=== PATIENT | female | born 1965 | race Caucasian/White ===

== ENCOUNTER 2024-02-21 09:35 | Emergency (ER) | payer OTHER, SELFPAY ==
[2024-02-21] VITALS (10 sets, daily range): BP systolic 130–161; BP diastolic 65–81; PULSE 97–111; RESP 16–38; TEMP 36.6–36.7; O2SAT 97–99; BMI 25.8
--- NOTE | 2024-02-21 10:33 | EKG_ITS ---
[address] [address] Test Date: 2024-02-21 Pat Name: Brielle Reddy Department: [facility] Room: Gender: Female Community Recreation Coordinator: LINH : 1965 Requested By: Order Number: [id number] Reading MD: Gavin Mendoza Measurements Intervals [place] Rate: 111 P: 82 ID: [id number] QRS: 71 QRSD: 88 T: 68 QT: 356 QTc: 484 Interpretive Statements Sinus tachycardia Electronically Signed On 02-23-2024 15:50:46 PDT by Gavin Mendoza
[2024-02-21 10:34] LABS: Add Manual Diff / Slide Review NO; Basophils Absolute Auto 0 /uL (0-100); Basophils Percent Auto 0.2 % (0-2); Eosinophils Absolute Auto 100 /uL (0-450); Hematocrit 37.5 % (36-46); Hemoglobin 12.8 g/dL (12.0-16.0); Lymphocytes Absolute Auto 1200 /uL (1100-4500); Lymphocytes Percent Auto 19.6 % (25-40); Mean Corpuscular Hemoglobin 28.7 PG (26-34); Mean Corpuscular Volume 84.3 fL (80-100); Monocytes Absolute Auto 500 /uL (0-900); Monocytes Percent Auto 7.9 % (3-14); Neutrophils Absolute Auto 4500 /uL (1500-7000); Neutrophils Percent Auto 71.3 % (50-75); Platelet Count 219 X10^3/uL (150-400); Red Blood Cell Count 4.44 X10^6/uL (4.0-5.2); Red Cell Distribution Width 13.4 % (11.6-14.8); White Blood Cell Count 6.4 X10^3/uL (4.5-11.0)
[2024-02-21 10:57] LABS: Alanine Aminotransferase 61 IU/L (<35); Albumin 4.4 g/dL (3.5-5.0); Albumin Globulin Ratio 1.6 (1.0-2.8); Alkaline Phosphatase 130 U/L (38-126); Aspartate Aminotransferase 42 IU/L (14-36); BUN Creatinine Ratio 15.2 (6-22); Bilirubin Total 0.5 mg/dL (0.2-1.3); Blood Urea Nitrogen 12 mg/dL (7-17); Calcium 9.2 mg/dL (8.4-10.2); Carbon Dioxide 27 mmol/L (22-32); Chloride 103 mmol/L (98-107); Estimated Glomerular Filt Rate > 60 mL/min (>60); Globulin 2.8 g/dL (1.7-4.1); Glucose 96 mg/dL (70-100); HEMOLYSIS < 15 (0-50); Lipase 64 U/L (23-300); Potassium 4.3 mmol/L (3.4-5.1); Sodium 137 mmol/L (137-145); Total Protein 7.2 g/dL (6.3-8.2)
--- NOTE | 2024-02-21 11:19 | ED_ITS ---
HPI - Abdominal Pain General Chief Complaint: Abdominal Pain Stated Complaint: R Side Pain Time Seen by Provider: 02/21/24 11:18 Source: patient Mode of arrival: Ambulatory History of Present Illness HPI narrative: Patient is a 58-year-old female history of hypertension presenting today with right upper quadrant pain. She reports that it has been there for about 2 weeks. She had a little bit of nausea last week. It is in the right upper quadrant radiating around to her back. No groin pain. She has a history of an appendectomy. No vomiting or fever. She has been taking Tylenol and Motrin around the clock over the last couple of weeks it does take the edge off but she is still uncomfortable. No significant chest pain or fever. Related Data Home Medications Medication Instructions Recorded Confirmed amlodipine 10 mg tablet 10 mg PO DAILY 02/21/24 02/21/24 bupropion HCl 150 mg tablet,12 hr 150 mg PO BID 02/21/24 02/21/24 sustained-release Previous Rx's Medication Instructions Recorded hydrocodone 5 mg-acetaminophen 325 1 tab PO Q6H PRN pain #20 tabs 02/21/24 mg tablet ondansetron 4 mg disintegrating 4 mg PO Q8H PRN nausea and 02/21/24 tablet vomiting #10 tabs Allergies Allergy/AdvReac Type Severity Reaction Status Date / Time No Known Drug Allergies Allergy Verified 02/21/24 10:02 Patient History Social History Smoking Status: Current every day smoker Smoking Status: Current every day smoker alcohol intake frequency: a few times a week Substance Use Type: does not use Exam Initial Vital Signs Initial Vital Signs: Vital Signs Temperature 98 F 02/21/24 09:58 Pulse Rate 109 H 02/21/24 09:58 Respiratory Rate 18 02/21/24 09:58 Blood Pressure 130/81 02/21/24 09:58 Pulse Oximetry 99 02/21/24 09:58 Oxygen Delivery Method Room Air 02/21/24 09:58 GENERAL: Alert well-appearing 58-year-old and in no acute distress. HEENT: Head atraumatic,EOMI, pupils reactive, face symmetric, moist mucous membranes CARDIOVASCULAR: Regular rate and rhythm without murmurs, rubs or gallops. RESPIRATORY: Breath sounds equal bilaterally, no wheezes rales or rhonchi. ABDOMEN: Soft, positive Hurt's sign minimal epigastric pain : No CVA tenderness EXTREMITIES: Normal range of motion, no clubbing or edema. Neurovascularly intact NEUROLOGICAL: Alert and oriented x4.Normal gait and speech. SKIN: Warm, dry, no laceration, no petechiae, no rashes or lesions. Course Orders Ordered: ED Orders 02/21/24 10:03 EKG-12 Lead Stat 02/21/24 10:22 Complete Blood Count AUTO DIFF Stat Comprehensive Metabolic Panel Stat Lipase Stat 02/21/24 10:26 CEA [Carcinoembryonic Antigen] Stat Cancer (Carbohydrate) Ag 19-9 Stat Cancer Antigen 125 Stat 02/21/24 11:12 Urine Culture Stat Urine Microscopic Stat 02/21/24 11:25 US abdomen limited Stat 02/21/24 12:20 CT abdomen pelvis w con Stat Discontinued Medications Hydromorphone HCl (Hydromorphone 1 Mg Inj) 0.5 mg IV NOW ONE Stop: 02/21/24 14:19 Last Admin: 02/21/24 14:25 Dose: 0.5 mg Documented By: MARIZOL Ketorolac Tromethamine (Ketorolac 30 Mg/Ml Vial) 15 mg IV NOW ONE Stop: 02/21/24 11:26 Last Admin: 02/21/24 11:29 Dose: 15 mg Documented By: MARIZOL Ondansetron HCl (Ondansetron 4 Mg/2 Ml Inj) 4 mg IV NOW PRN PRN Reason: Nausea And Vomiting Ondansetron HCl (Ondansetron 4 Mg Odt) 4 mg PO NOW PRN PRN Reason: Nausea And Vomiting Vital Signs Vital signs: Vital Signs - 8 hr 02/21/24 09:58 02/21/24 10:33 02/21/24 11:00 Temperature 98 F Pulse Rate 109 H 111 H 98 H Respiratory Rate 18 21 Blood Pressure 130/81 Pulse Oximetry 99 97 97 Oxygen Delivery Method Room Air 02/21/24 11:00 02/21/24 11:15 02/21/24 11:15 Temperature Pulse Rate 110 H Respiratory Rate 24 Blood Pressure 134/65 161/69 H Pulse Oximetry 97 Oxygen Delivery Method 02/21/24 11:30 02/21/24 12:00 02/21/24 12:01 Temperature Pulse Rate 100 H 101 H Respiratory Rate 22 20 Blood Pressure 139/68 Pulse Oximetry 98 98 Oxygen Delivery Method 02/21/24 12:01 02/21/24 12:30 02/21/24 12:30 Temperature Pulse Rate 101 H 104 H Respiratory Rate 38 H 32 H Blood Pressure 140/66 Pulse Oximetry 98 97 Oxygen Delivery Method 02/21/24 13:00 02/21/24 14:49 Temperature 98.1 F Pulse Rate 97 H 101 H Respiratory Rate 20 16 Blood Pressure 144/79 H Pulse Oximetry 98 97 Oxygen Delivery Method Room Air MDM - Abdominal Pain Lab Data 02/21/24 10:22 02/21/24 10:22 Labs: Lab Results 02/21/24 02/21/24 02/21/24 Range/Units 10: 10:26 11:12 WBC 6.4 (4.5-11.0) X10^3/uL RBC 4.44 (4.0-5.2) X10^6/uL Hgb 12.8 (12.0-16.0) g/dL Hct 37.5 (36-46) % MCV 84.3 (80-100) fL MCH 28.7 (26-34) PG MCHC 34.0 (30-36) % RDW 13.4 (11.6-14.8) % Plt Count 219 (150-400) X10^3/uL Neut % (Auto) 71.3 (50-75) % Lymph % (Auto) 19.6 L (25-40) % [place] % (Auto) 7.9 (3-14) % Eos % (Auto) 1.0 L (2-4) % Baso % (Auto) 0.2 (0-2) % Neut # (Auto) 4500 (6908-4457) /uL Lymph # (Auto) 1200 (7551-8882) /uL [place] # (Auto) 500 (0-900) /uL Eos # (Auto) 100 (0-450) /uL Baso # (Auto) 0 (0-100) /uL Sodium 137 (137-145) mmol/L Potassium 4.3 (3.4-5.1) mmol/L Chloride 103 (98-107) mmol/L Carbon Dioxide 27 (22-32) mmol/L BUN 12 (7-17) mg/dL Creatinine 0.79 (0.52-1.04) mg/dL Estimated GFR > 60 (>60) mL/min BUN/Creatinine Ratio 15.2 (6-22) Glucose 96 (70-100) mg/dL Calcium 9.2 (8.4-10.2) mg/dL Total Bilirubin 0.5 (0.2-1.3) mg/dL AST 42 H (14-36) IU/L ALT 61 H (<35) IU/L Alkaline Phosphatase 130 H (38-126) U/L Total Protein 7.2 (6.3-8.2) g/dL Albumin 4.4 (3.5-5.0) g/dL Globulin 2.8 (1.7-4.1) g/dL Albumin/Globulin Ratio 1.6 (1.0-2.8) Lipase 64 (23-300) U/L Carcinoembryonic Ag 3.2 H (0.1-3.0) ng/mL CA 125 Antigen 12.0 (0-35) U/mL Urine RBC 0-1/hpf (0-5/HPF) Urine WBC 5-10/hpf H (0-5/HPF) Ur Squamous Epith Cells 1-5 /hpf (0-5/HPF) Urine Bacteria Moderate (10-30) H (None) Ur Culture Indicated? Specimen cultured Vol Urine Centrifuged 10ml (spun) Point of care testing: Urine Dip Bedside Urine Glucose Negative Bedside Urine Bilirubin - Negative Bedside Urine Ketone - Negative Urine Specific [place] 1.015 Bedside Urine Occult Blood - Negative Bedside Urine pH 7.5 Bedside Urine Protein - Negative Bedside Urine Urobilinogen - Negative Bedside Urine Nitrite - Negative Bedside Urine Leukocytes +++ 500 Esterase Imaging Data US - abdomen: Radiologist's Impression: PROCEDURE: US ABDOMEN LIMITED INDICATIONS: RUQ TECHNIQUE: Real-time scanning was performed of the abdominal and retroperitoneal organs, with image documentation. COMPARISON: None. FINDINGS: Liver: Homogeneous echotexture. No evidence of focal mass lesion. No intra hepatic biliary ductal dilatation Gallbladder: Sonolucent without cholelithiasis. No gallbladder wall thickening. No pericholecystic fluid or Hurt's sign. 4.5 cm echogenic mass adjacent to the gallbladder Common Bile Duct: 4.7 mm. Pancreas: 6.6 cm solid mass either within or adjacent to the pancreatic head. IMPRESSION: Solid mass lesion either within or adjacent to the pancreatic head will be further evaluated with contrast CT abdomen and pelvis Additional mass lesion adjacent to the gallbladder Approved by: Andres Flood M.D. on 02/21/2024 at 12:34 CT scan - abdomen/pelvis: Radiologist's Impression: PROCEDURE: CT ABDOMEN PELVIS W CON INDICATIONS: pancreatic mass on CT TECHNIQUE: After the administration of intravenous contrast, axial sections acquired from the lung bases to the pubic symphysis. Coronal and sagittal reformats were performed. For radiation dose reduction, the following was used: automated exposure control, adjustment of mA and/or kV according to patient size. COMPARISON: None. FINDINGS: Lower thorax: The lung bases are clear. Heart size normal. No hiatal hernia. Liver: Normal in size and attenuation. No contour deformity present. Biliary system: No calcified cholelithiasis or pericholecystic inflammation. No intra or extrahepatic bile duct dilatation. Pancreas: Irregular mass lesion centered on the head of the pancreas has several lobulations extending into the gallbladder fossa as well as superiorly adjacent to the liver. The mass measures overall 6.5 by 2.4 by 6.2 cm, and surrounds the main portal vein resulting in significant stenosis without occlusion or portal vein thrombosis. No evidence of direct liver involvement Spleen: The spleen is enlarged at 12.6 cm. No intrinsic mass lesion. Adrenals: Normal morphology and density. Reproductive system: Unremarkable as visualized. Urinary system: Normal renal size and attenuation. No renal calculi, hydronephrosis, or solid mass present. Urinary bladder unremarkable. Gastrointestinal system: The bowel is unremarkable without evidence of bowel obstruction or inflammation. The stomach appears unremarkable. Multiple diverticula arise from the sigmoid colon without evidence of diverticulitis. Appendix: Appendectomy Peritoneal spaces: Retroperitoneal para-aortic adenopathy measures up to 2.3 cm. Vasculature: Aortic atherosclerotic vascular calcification noted without evidence of aneurysm. Abdominal wall: Abdominal wall intact without evidence of ventral or inguinal hernias. Musculoskeletal: Normal bone mineralization. Degenerative disc disease and arthropathy noted in lower lumbar spine. No acute fractures. Perineural sacral cysts IMPRESSION: Large mass in the head of the pancreas consistent with adenocarcinoma. Retroperitoneal adenopathy. No evidence of hepatic metastasis. Approved by: Andres Flood M.D. on 02/21/2024 at 12:52 ECG Data Attestation: I personally reviewed and interpreted this ECG as follows: Prior ECG tracings: available for review Interpretation: Normal sinus rhythm rate 111 LA interval 166 QRS [address] changes no T- wave inversions no ischemia MDM Narrative Medical decision making narrative: Patient 58-year-old female without significant past medical history although she has a an appendectomy presenting today with a right upper quadrant pain. Has been ongoing for the last 2 weeks. Minimal nausea no vomiting no fevers. Blood work has been reviewed she does have elevated liver enzymes, AST 42 ALT 61 alk-phos 130 bilirubin 0.5, lipase 64 no priors to compare She has no leukocytosis normal electrolytes no TONIO Ultrasound concerning for pancreatic mass CT confirms a pancreatic mass Discussion of test results with patient she is given copy of her CT report. Discussion with DIRECTOR FUNDRAISING Marshall Mccain at [facility] [employer] which is patient's PCP updated on test results need for urgent follow-up with Oncology. Patient tolerating news well. She did request for stronger pain medicine more than Toradol so she was given Dilaudid which did seem to help. Given prescriptions for pain medication nausea medication at home. CEA 3.2 CA 19 9 pending CA 125 12 Discharge Plan Departure Patient Disposition: Home Clinical Impression: Mass of pancreas Activity Restrictions/Additional Instructions: *You have been diagnosed with pancreatic mass *What to do: You need further workup including biopsy blood markers and referral to Oncology. I have tried to call primary care office today if they return a phone call I will gladly talk to them I will try again tomorrow as well. *Continue to take medications as directed [place] 1 tablet every 6 hours if needed for opcl-[id number] pain Zofran 4 mg every 8 hours for nausea or vomiting *Follow up with your primary care provider in 2-3 days or call [phone] Follow-up with primary care, call on Friday. Be sure to give him your diagnosis and need for urgent referral to Oncology *Return to ER if you should have increasing pain nausea vomiting fever or any new, worsening or concerning symptoms Prescriptions: New hydrocodone-acetaminophen 5-325 mg tablet 1 tab PO Q6H PRN (Reason: pain) Qty: 20 0RF ondansetron 4 mg tablet,disintegrating 4 mg PO Q8H PRN (Reason: nausea and vomiting) Qty: 10 0RF No Action bupropion HCl 150 mg tablet sustained-release 12 hr 150 mg PO BID amlodipine 10 mg tablet 10 mg PO DAILY Referrals: Holly Rivera PA-C [Primary Care Provider] - Stand Alone Forms: Patient Portal/API
--- NOTE | 2024-02-21 11:25 | DI.US.S_ITS ---
PROCEDURE: US ABDOMEN LIMITED INDICATIONS: RUQ TECHNIQUE: Real-time scanning was performed of the abdominal and retroperitoneal organs, with image documentation. COMPARISON: None. FINDINGS: Liver: Homogeneous echotexture. No evidence of focal mass lesion. No intra hepatic biliary ductal dilatation Gallbladder: Sonolucent without cholelithiasis. No gallbladder wall thickening. No pericholecystic fluid or Hurt's sign. 4.5 cm echogenic mass adjacent to the gallbladder Common Bile Duct: 4.7 mm. Pancreas: 6.6 cm solid mass either within or adjacent to the pancreatic head. IMPRESSION: Solid mass lesion either within or adjacent to the pancreatic head will be further evaluated with contrast CT abdomen and pelvis Additional mass lesion adjacent to the gallbladder Approved by: Andres Flood M.D. on 02/21/2024 at 12:34
[2024-02-21] MEDS: KETOROLAC 30 MG/ML VIAL 15 MG IV (11:29)
[2024-02-21 11:59] LABS: Bacteria Urine Moderate (10-30); Culture Indicated Urine Specimen Cultured; RBC Urine 0-1/HPF (0-5/HPF); Squamous Epithelial Cell Urine 1-5 /HPF (0-5/HPF); Urine Volume 10mL (spun); WBC Urine 5-10/HPF (0-5/HPF)
--- NOTE | 2024-02-21 12:20 | DI.CT.S_ITS ---
PROCEDURE: CT ABDOMEN PELVIS W CON INDICATIONS: pancreatic mass on CT TECHNIQUE: After the administration of intravenous contrast, axial sections acquired from the lung bases to the pubic symphysis. Coronal and sagittal reformats were performed. For radiation dose reduction, the following was used: automated exposure control, adjustment of mA and/or kV according to patient size. COMPARISON: None. FINDINGS: Lower thorax: The lung bases are clear. Heart size normal. No hiatal hernia. Liver: Normal in size and attenuation. No contour deformity present. Biliary system: No calcified cholelithiasis or pericholecystic inflammation. No intra or extrahepatic bile duct dilatation. Pancreas: Irregular mass lesion centered on the head of the pancreas has several lobulations extending into the gallbladder fossa as well as superiorly adjacent to the liver. The mass measures overall 6.5 by 2.4 by 6.2 cm, and surrounds the main portal vein resulting in significant stenosis without occlusion or portal vein thrombosis. No evidence of direct liver involvement Spleen: The spleen is enlarged at 12.6 cm. No intrinsic mass lesion. Adrenals: Normal morphology and density. Reproductive system: Unremarkable as visualized. Urinary system: Normal renal size and attenuation. No renal calculi, hydronephrosis, or solid mass present. Urinary bladder unremarkable. Gastrointestinal system: The bowel is unremarkable without evidence of bowel obstruction or inflammation. The stomach appears unremarkable. Multiple diverticula arise from the sigmoid colon without evidence of diverticulitis. Appendix: Appendectomy Peritoneal spaces: Retroperitoneal para-aortic adenopathy measures up to 2.3 cm. Vasculature: Aortic atherosclerotic vascular calcification noted without evidence of aneurysm. Abdominal wall: Abdominal wall intact without evidence of ventral or inguinal hernias. Musculoskeletal: Normal bone mineralization. Degenerative disc disease and arthropathy noted in lower lumbar spine. No acute fractures. Perineural sacral cysts IMPRESSION: Large mass in the head of the pancreas consistent with adenocarcinoma. Retroperitoneal adenopathy. No evidence of hepatic metastasis. Approved by: Andres Flood M.D. on 02/21/2024 at 12:52
[2024-02-21] MEDS: HYDROMORPHONE 1 MG INJ 0.5 MG IV (14:25)
[2024-02-21 15:06] LABS: Carcinoembryonic Antigen 3.2 ng/mL (0.1-3.0)
[2024-02-23 22:39] LABS: Cancer (Carbohydrate) Ag 19-9 12 U/mL (0-35)
== END 2024-02-21 14:50 | disposition home or self-care (01) ==
PROVIDERS: Emergency Provider Emergency Medicine; PCP Physician Assistant
DX: K86.89 Other specified diseases of pancreas (principal); R11.0 Nausea; R00.0 Tachycardia, unspecified
CPT/HCPCS: 74177; 76705; 80053; 81003; 81015; 82378; 83690; 85025; 86301; 86304; 87086; 93005; 96374; 96375; 99283; 99284; J1171; J1885; Q9967

== ENCOUNTER 2024-03-24 18:31 | Emergency (ER) | payer OTHER, SELFPAY ==
[2024-03-24 18:37] VITALS: BP 141/67; PULSE 122; RESP 18; TEMP 36.6; O2SAT 97; BMI 27.3
--- NOTE | 2024-03-24 18:41 | EKG_ITS ---
[address] [address] Test Date: 2024-03-24 Pat Name: Brielle Reddy Department: [facility] Room: Gender: Female Manager Application: inés : 1965 Requested By: Order Number: [id number] Reading MD: Gavin eMndoza Measurements Intervals [place] Rate: 110 P: 78 IA: 150 QRS: 76 QRSD: 88 T: 67 QT: 362 QTc: 489 Interpretive Statements Sinus tachycardia Right atrial enlargement Electronically Signed On 03-25-2024 7:59:22 PST by Gavin Mendoza
[2024-03-24 19:04] LABS: Add Manual Diff / Slide Review NO; Basophils Absolute Auto 0 /uL (0-100); Basophils Percent Auto 0.4 % (0-2); Eosinophils Absolute Auto 100 /uL (0-450); Eosinophils Percent Auto 1.4 % (2-4); Hematocrit 36.5 % (36-46); Hemoglobin 12.1 g/dL (12.0-16.0); Lymphocytes Absolute Auto 1400 /uL (1100-4500); Lymphocytes Percent Auto 14.5 % (25-40); Mean Corpuscular HGB Conc 33.1 % (30-36); Mean Corpuscular Hemoglobin 27.8 PG (26-34); Mean Corpuscular Volume 83.9 fL (80-100); Monocytes Absolute Auto 900 /uL (0-900); Monocytes Percent Auto 9.1 % (3-14); Neutrophils Absolute Auto 7200 /uL (1500-7000); Neutrophils Percent Auto 74.6 % (50-75); Platelet Count 337 X10^3/uL (150-400); Red Blood Cell Count 4.35 X10^6/uL (4.0-5.2); Red Cell Distribution Width 15.1 % (11.6-14.8); White Blood Cell Count 9.6 X10^3/uL (4.5-11.0)
[2024-03-24 19:06] LABS: Alanine Aminotransferase 81 IU/L (<35); Albumin 3.5 g/dL (3.5-5.0); Albumin Globulin Ratio 1.1 (1.0-2.8); Alkaline Phosphatase 384 U/L (38-126); Aspartate Aminotransferase 62 IU/L (14-36); BUN Creatinine Ratio 12.1 (6-22); Bilirubin Total 3.4 mg/dL (0.2-1.3); Blood Urea Nitrogen 8 mg/dL (7-17); Calcium 8.9 mg/dL (8.4-10.2); Carbon Dioxide 31 mmol/L (22-32); Chloride 99 mmol/L (98-107); Estimated Glomerular Filt Rate > 60 mL/min (>60); Globulin 3.3 g/dL (1.7-4.1); Glucose 104 mg/dL (70-100); HEMOLYSIS < 15 (0-50); Lipase 110 U/L (23-300); Potassium 3.4 mmol/L (3.4-5.1); Sodium 133 mmol/L (137-145); Total Protein 6.8 g/dL (6.3-8.2)
[2024-03-24 20:24] LABS: Bacteria Urine Moderate (10-30); Culture Indicated Urine Specimen Cultured; RBC Urine 0-1/HPF (0-5/HPF); Squamous Epithelial Cell Urine 5-10 /HPF (0-5/HPF); Urine Volume 10mL (spun); WBC Urine 1-5/HPF (0-5/HPF)
--- NOTE | 2024-03-24 21:52 | ED.ABDPAIN ---
HPI - Abdominal Pain General Chief Complaint: Abdominal Pain Stated Complaint: abd px Time Seen by Provider: 03/24/24 21:51 Source: patient Mode of arrival: Ambulatory History of Present Illness HPI narrative: Patient is a 58-year-old female who has a newly diagnosed B-cell lymphoma mass in her abdomen with recent biliary stent followed by [facility] presenting today with ongoing abdominal pain. She has preliminary biopsy results back but has not yet started chemotherapy. She was having increasing bilirubin and liver enzymes numbers and she had a biliary stent placed less than 1 week ago. She reports ongoing abdominal pain for 3 weeks. She is able to eat and drink but she certainly is not eating very much. The pain is extremely uncomfortable for her. She reports that pain medication isn't really helping. No nausea or vomiting. She is having bowel movements she did take some sort of Gas-X and had diarrhea. No fever or chills. Related Data Home Medications Medication Instructions Recorded Confirmed amlodipine 10 mg tablet 10 mg PO DAILY 02/21/24 02/21/24 bupropion HCl 150 mg tablet,12 hr 150 mg PO BID 02/21/24 02/21/24 sustained-release Previous Rx's Medication Instructions Recorded hydrocodone 5 mg-acetaminophen 325 1 tab PO Q6H PRN pain #20 tabs 02/21/24 mg tablet ondansetron 4 mg disintegrating 4 mg PO Q8H PRN nausea and 02/21/24 tablet vomiting #10 tabs ciprofloxacin HCl 500 mg tablet 500 mg PO BID #14 tabs 03/24/24 (Cipro) metronidazole 500 mg tablet 500 mg PO Q8H 7 days #21 tabs 03/24/24 ondansetron 4 mg disintegrating 4 mg PO Q8H PRN nausea and 03/24/24 tablet vomiting #20 tabs oxycodone 5 mg tablet 5 mg PO Q6H PRN pain #20 tabs 03/24/24 Allergies Allergy/AdvReac Type Severity Reaction Status Date / Time No Known Drug Allergies Allergy Verified 03/24/24 18:41 Patient History Social History Smoking Status: Current every day smoker Smoking Status: Current every day smoker tobacco type: cigarettes alcohol intake frequency: holidays/special occasions only Substance Use Type: does not use Exam Initial Vital Signs Initial Vital Signs: Vital Signs Temperature 97.9 F 11/20/24 18:37 Pulse Rate 122 H 03/24/24 18:37 Respiratory Rate 18 03/24/24 18:37 Blood Pressure 141/67 H 03/24/24 18:37 Pulse Oximetry 97 03/24/24 18:37 Oxygen Delivery Method Room Air 03/24/24 18:37 GENERAL: Alert 58-year-old female slightly jaundice 58-year-old HEENT: Head atraumatic,EOMI, pupils reactive, face symmetric, moist mucous membranes CARDIOVASCULAR: Regular rate and rhythm without murmurs, rubs or gallops. RESPIRATORY: Breath sounds equal bilaterally, no wheezes rales or rhonchi. ABDOMEN: Soft, mildly tender periumbilical region no significant distention tender across lower abdomen as well : No CVA tenderness EXTREMITIES: Normal range of motion, no clubbing or edema. Neurovascularly intact NEUROLOGICAL: Alert and oriented x4.Normal gait and speech. Cranial nerves II through XII grossly intact. SKIN: Warm, dry, no laceration, no petechiae, no rashes or lesions. Course Orders Ordered: ED Orders 03/24/24 21:57 CT abdomen pelvis w con Stat Discontinued Medications Ciprofloxacin (Ciprofloxacin 250 Mg Tablet) 500 mg PO NOW ONE Stop: 03/24/24 23:21 Last Admin: 03/24/24 23:31 Dose: 500 mg Documented By: MARINO Hydromorphone HCl (Hydromorphone 1 Mg Inj) 1 mg IV NOW ONE Stop: 03/24/24 21:58 Last Admin: 03/24/24 22:10 Dose: 1 mg Documented By: MARINO Metronidazole (Metronidazole 500 Mg Tablet) 500 mg PO NOW ONE Stop: 03/24/24 23:21 Last Admin: 03/24/24 23:31 Dose: 500 mg Documented By: MARINO Ondansetron HCl (Ondansetron 4 Mg/2 Ml Inj) 4 mg IV NOW PRN PRN Reason: Nausea And Vomiting Ondansetron HCl (Ondansetron 4 Mg Odt) 4 mg PO NOW PRN PRN Reason: Nausea And Vomiting Vital Signs Vital signs: Vital Signs - 8 hr 03/24/24 23:34 Temperature 98.4 F Respiratory Rate 18 Blood Pressure 142/72 H Pulse Oximetry 96 Oxygen Delivery Method Room Air MDM - Abdominal Pain Lab Data 03/24/24 18:45 03/24/24 18:45 Labs: Lab Results 03/24/24 03/24/24 Range/Units 18:45 18:50 WBC 9.6 (4.5-11.0) X10^3/uL RBC 4.35 (4.0-5.2) X10^6/uL Hgb 12.1 (12.0-16.0) g/dL Hct 36.5 (36-46) % MCV 83.9 (80-100) fL MCH 27.8 (26-34) PG MCHC 33.1 (30-36) % RDW 15.1 H (11.6-14.8) % Plt Count 337 (150-400) X10^3/uL Neut % (Auto) 74.6 (50-75) % Lymph % (Auto) 14.5 L (25-40) % [place] % (Auto) 9.1 (3-14) % Eos % (Auto) 1.4 L (2-4) % Baso % (Auto) 0.4 (0-2) % Neut # (Auto) 7200 H (5928-4716) /uL Lymph # (Auto) 1400 (6441-4783) /uL [place] # (Auto) 900 (0-900) /uL Eos # (Auto) 100 (0-450) /uL Baso # (Auto) 0 (0-100) /uL Sodium 133 L (137-145) mmol/L Potassium 3.4 (3.4-5.1) mmol/L Chloride 99 (98-107) mmol/L Carbon Dioxide 31 (22-32) mmol/L BUN 8 (7-17) mg/dL Creatinine 0.66 (0.52-1.04) mg/dL Estimated GFR > 60 (>60) mL/min BUN/Creatinine Ratio 12.1 (6-22) Glucose 104 H (70-100) mg/dL Calcium 8.9 (8.4-10.2) mg/dL Total Bilirubin 3.4 H (0.2-1.3) mg/dL AST 62 H (14-36) IU/L ALT 81 H (<35) IU/L Alkaline Phosphatase 384 H (38-126) U/L Total Protein 6.8 (6.3-8.2) g/dL Albumin 3.5 (3.5-5.0) g/dL Globulin 3.3 (1.7-4.1) g/dL Albumin/Globulin Ratio 1.1 (1.0-2.8) Lipase 110 (23-300) U/L Urine RBC 0-1/hpf (0-5/HPF) Urine WBC 1-5/hpf (0-5/HPF) Ur Squamous Epith Cells 5-10 /hpf H (0-5/HPF) Urine Bacteria Moderate (10-30) H (None) Ur Culture Indicated? Specimen cultured Vol Urine Centrifuged 10ml (spun) Point of care testing: Urine Dip Bedside Urine Glucose Negative Bedside Urine Bilirubin - Negative Bedside Urine Ketone - Negative Urine Specific [place] 1.015 Bedside Urine Protein - Negative Bedside Urine Urobilinogen - Negative Bedside Urine Nitrite - Negative Bedside Urine Leukocytes + [address] scan - abdomen/pelvis: Radiologist's Impression: PROCEDURE: CT ABDOMEN PELVIS W CON INDICATIONS: pancreatic mass biliary stent TECHNIQUE: After the administration of intravenous contrast, axial sections acquired from the lung bases to the pubic symphysis. Coronal and sagittal reformats were performed. For radiation dose reduction, the following was used: automated exposure control, adjustment of mA and/or kV according to patient size. COMPARISON: [facility], CT, CT ABDOMEN PELVIS W CON, 02/21/2024, 12:40. FINDINGS: Image quality: Diagnostic. Lower Chest: No significant findings. ABDOMEN: Liver: Mild steatosis. No discrete mass. Gallbladder: Distended. No wall thickening or stone. Biliary ducts: Left hepatic lobe pneumobilia. No significant biliary dilatation. Common bile duct stent is present. Pancreas: Large lobulated mass arising from the pancreatic head extending cranial into the nikolas hepatis and superior to the pericaval region measures about 7.8 x 6.5 cm, previous about 6. 4 x 6.0 cm. The mass surrounds and attenuates the main portal vein, hepatic artery, and probably now the retrohepatic inferior vena cava. Spleen: Size is within normal limits. Adrenal Glands: No adrenal nodules. Kidneys and Ureters: Symmetric enhancement. No nephrolithiasis or hydronephrosis. No hydroureter. Stomach and Bowel: Decompressed stomach and small bowel. Increased quantity of solid stool in the colon. The appendix is absent. Decompression of the sigmoid colon with circumferential wall thickening, mild surrounding pericolonic inflammation, mild colonic hyperemia, and adjacent fascial thickening. Findings are new since the prior exam. Peritoneum: No free fluid or free air. Ventral Wall: No significant ventral hernia. Abdominal Nodes: Bulky aortocaval adenopathy below the level of the renal vein. Vessels: Mass nearly attenuates the proximal left renal vein. The splenic vein is patent. Abdominal aorta is normal caliber. Moderate abdominal aortic atherosclerotic calcification. PELVIS: Pelvic Organs: Uterus and ovaries are normal. Bladder: No bladder wall thickening, accounting for underdistention. Pelvic Nodes: No enlarged lymph nodes. Miscellaneous: No inguinal hernias are seen. Bones: No aggressive osseous abnormality. IMPRESSION: Increased size pancreatic surrounding portal vein, hepatic artery, and now effecting the proximal left renal vein and retro hepatics IVC. Findings suggest acute left lower quadrant colitis and/or diverticulitis. Mild pneumobilia, increased compared to the prior exam is expected post common duct stent placement. Dictated by: Aisa Robbins M.D. on 03/24/2024 at 22:41 ECG Data Attestation: I personally reviewed and interpreted this ECG as follows: Prior ECG tracings: available for review Interpretation: Normal sinus rhythm rate 110 VA interval 150 QRS 88 QTC 489 no ischemia similar to prior MDM Narrative Medical decision making narrative: MDM CC: Abdominal pain Complicating co-morbidities: Abdominal mass Medical records reviewed: Previous ED visits Differential considered: Bowel obstruction worsening metastasis Exam documented above, pertinent findings include: Abdomen is tender she is tender across her lower abdomen and pearly umbilical region. Mild jaundice noted on exam Lab Test results independently reviewed as above. Pertinent findings: WBC 9.6, hemoglobin 12.1 hematocrit 36.5 Sodium 133, potassium 3.4, chloride 99, carbon dioxide 30, BUN 8, creatinine 0.6 Bilirubin 3.4, AST 62 ALT a new 1 alk-phos 384 Independently reviewed EKG as above no ischemia sinus rhythm Imaging studies independently reviewed: Worsening lobulated mass Also acute diverticulitis Consultations: None Treatments: Dilaudid Cipro Flagyl Zofran Re-evaluations: Patient is doing much better after Dilaudid Discussion: Patient 58-year-old female has a known pancreatic mass she reports that it is B-cell lymphoma based on preliminary biopsy results. Waiting to start chemotherapy at [facility] for definitive pathology. She has been having some bloating and lower abdominal pain and discomfort. CT does show acute diverticulitis. She has no leukocytosis. Urinalysis does show bacteria but she is some squamous cell not terribly concerning for UTI. We will go ahead and start her on Cipro and Flagyl for diverticulitis to see if that helps. We will give her some pain medications and nausea medication. Recommend outpatient follow up. Patient was given disc copy of her CT and imaging was pushed into [facility] Discharge Plan Departure Patient Disposition: Home Clinical Impression: Diverticulitis, Mass of pancreas Instructions: DI for Diverticulitis Activity Restrictions/Additional Instructions: *You have been diagnosed with diverticulitis *What to do: At this time you do have mild case of diverticulitis which might be missing your pain in your abdomen worse. I do think reasonable to start you on a course antibiotics to see if it helps. *Continue to take medications as directed Cipro 500 mg twice a day for 7 days Flagyl 500 mg 3 times a day for 7 days Zofran 4 mg every 8 hours if needed for nausea or vomiting Oxycodone 5 mg every 6 hours if needed for severe pain *Follow up with your primary care provider in 2-3 days or call [phone] *Return to ER if you should have increasing abdominal pain vomiting fever [or] any new, worsening or concerning symptoms CONTROLLED SUBSTANCE DISCHARGE (Narcotoic/benzodiazepine/Flexeril/Phenergan) 1. You have been prescribed narcotic medications, it does have acetaminophen/Tylenol/paracetamol in it, DO NOT TAKE MORE THAN 4,00mg in 24 hours of Tylenol. TRAMADOL DOES NOT CONTAIN TYLENOL 2. Please understand that we cannot provide further refills of narcotics, benzodiazepines or controlled substances through the ED and her pain management will need to be through your provider. 3. While on these medications you cannot drive or operate heavy machinery. 4. You cannot sign legal documents or perform any duties such as this. 5. As long as you're taking opiate pain medications he should also be taking a stool softener such as Colace, Dulcolax, MiraLAX or prune juice, to help avoid constipation. Prescriptions: New metronidazole 500 mg tablet 500 mg PO Q8H 7 Days Qty: 21 0RF ciprofloxacin HCl [Cipro] 500 mg tablet 500 mg PO BID Qty: 14 0RF ondansetron 4 mg tablet,disintegrating 4 mg PO Q8H PRN (Reason: nausea and vomiting) Qty: 20 0RF oxycodone 5 mg tablet 5 mg PO Q6H PRN (Reason: pain) Qty: 20 0RF No Action bupropion HCl 150 mg tablet sustained-release 12 hr 150 mg PO BID amlodipine 10 mg tablet 10 mg PO DAILY hydrocodone-acetaminophen 5-325 mg tablet 1 tab PO Q6H PRN (Reason: pain) Qty: 20 0RF ondansetron 4 mg tablet,disintegrating 4 mg PO Q8H PRN (Reason: nausea and vomiting) Qty: 10 0RF Referrals: Holly Rivera PA-C [Primary Care Provider] - Stand Alone Forms: Patient Portal/API/Survey
--- NOTE | 2024-03-24 21:57 | DI.CT.S_ITS ---
PROCEDURE: CT ABDOMEN PELVIS W CON INDICATIONS: pancreatic mass biliary stent TECHNIQUE: After the administration of intravenous contrast, axial sections acquired from the lung bases to the pubic symphysis. Coronal and sagittal reformats were performed. For radiation dose reduction, the following was used: automated exposure control, adjustment of mA and/or kV according to patient size. COMPARISON: [facility], CT, CT ABDOMEN PELVIS W CON, 02/21/2024, 12:40. FINDINGS: Image quality: Diagnostic. Lower Chest: No significant findings. ABDOMEN: Liver: Mild steatosis. No discrete mass. Gallbladder: Distended. No wall thickening or stone. Biliary ducts: Left hepatic lobe pneumobilia. No significant biliary dilatation. Common bile duct stent is present. Pancreas: Large lobulated mass arising from the pancreatic head extending cranial into the nikolas hepatis and superior to the pericaval region measures about 7.8 x 6.5 cm, previous about 6. 4 x 6.0 cm. The mass surrounds and attenuates the main portal vein, hepatic artery, and probably now the retrohepatic inferior vena cava. Spleen: Size is within normal limits. Adrenal Glands: No adrenal nodules. Kidneys and Ureters: Symmetric enhancement. No nephrolithiasis or hydronephrosis. No hydroureter. Stomach and Bowel: Decompressed stomach and small bowel. Increased quantity of solid stool in the colon. The appendix is absent. Decompression of the sigmoid colon with circumferential wall thickening, mild surrounding pericolonic inflammation, mild colonic hyperemia, and adjacent fascial thickening. Findings are new since the prior exam. Peritoneum: No free fluid or free air. Ventral Wall: No significant ventral hernia. Abdominal Nodes: Bulky aortocaval adenopathy below the level of the renal vein. Vessels: Mass nearly attenuates the proximal left renal vein. The splenic vein is patent. Abdominal aorta is normal caliber. Moderate abdominal aortic atherosclerotic calcification. PELVIS: Pelvic Organs: Uterus and ovaries are normal. Bladder: No bladder wall thickening, accounting for underdistention. Pelvic Nodes: No enlarged lymph nodes. Miscellaneous: No inguinal hernias are seen. Bones: No aggressive osseous abnormality. IMPRESSION: Increased size pancreatic surrounding portal vein, hepatic artery, and now effecting the proximal left renal vein and retro hepatics IVC. Findings suggest acute left lower quadrant colitis and/or diverticulitis. Mild pneumobilia, increased compared to the prior exam is expected post common duct stent placement. Dictated by: Aisa Robbins M.D. on 03/24/2024 at 22:41 Approved by: Asia Robbins M.D. on 03/24/2024 at 22:52
[2024-03-24] MEDS: HYDROMORPHONE 1 MG INJ IV (22:10)
[2024-03-24] MEDS: CIPROFLOXACIN 250 MG TABLET 500 MG PO (23:31)
[2024-03-24] MEDS: metroNIDAZOLE 500 MG TABLET PO (23:31)
[2024-03-24 23:34] VITALS: BP 142/72; RESP 18; TEMP 36.9; O2SAT 96
== END 2024-03-24 23:37 | disposition home or self-care (01) ==
PROVIDERS: Emergency Provider Emergency Medicine; PCP Physician Assistant
DX: K57.92 Diverticulitis of intestine, part unspecified, without perforation or abscess without bleeding (principal); K86.89 Other specified diseases of pancreas; R00.0 Tachycardia, unspecified
CPT/HCPCS: 36415; 74177; 80053; 81003; 81015; 83690; 85025; 87086; 93005; 96374; 99284; J1171; Q9967

== ENCOUNTER → 2024-05-01 10:48 | Outpatient (CLI) | payer OTHER, SELFPAY ==
[2024-05-01 11:40] LABS: Appearance Urine UA CLEAR; Bilirubin Urine UA NEGATIVE (NEGATIVE); Color Urine UA YELLOW; Glucose Urine UA NEGATIVE (Negative); Ketones Urine UA NEGATIVE (NEGATIVE); Leukocyte Esterase Urine UA 1+ (NEGATIVE); Nitrite Urine UA NEGATIVE (Negative); Occult Blood Urine UA NEGATIVE (Negative); Protein Urine UA TRACE (Negative)
[2024-05-01 11:46] LABS: Bacteria Urine Moderate (10-30); RBC Urine None Seen (0-5/HPF); Squamous Epithelial Cell Urine 0-1 /HPF (0-5/HPF); Transitional Epi Cells Urine 1-5/HPF (0-5/HPF); Urine Volume 10mL (spun); WBC Urine 10-30/HPF (0-5/HPF)
[2024-05-01 11:47] LABS: Amorphous Sediment Urine 2+; Culture Indicated Urine Specimen Cultured
[2024-05-01 12:00] LABS: TSH w/ Reflex to FT4 0.04 uIU/mL (0.47-4.68)
[2024-05-01 12:29] LABS: Free T4, Direct Thyroxine 2.31 ng/dL (0.78-2.19)
[2024-05-03 15:34] LABS: HIV 1 & 2 Ab/Ag 4th Gen Combo NEGATIVE (NEGATIVE); Hep C Virus Ab w/Reflex Quant NEGATIVE s/c (NEGATIVE)
== END ==
PROVIDERS: PCP Physician Assistant; Referring Provider Internal Medicine Hematology & Oncology; Visit Provider Internal Medicine Hematology & Oncology
DX: C83.30 Diffuse large B-cell lymphoma, unspecified site (principal)
CPT/HCPCS: 36415; 81001; 84439; 84443; 86803; 87086; 87389

== ENCOUNTER 2024-05-11 17:47 | Emergency (ER) | payer OTHER, SELFPAY ==
[2024-05-11] VITALS (13 sets, daily range): BP systolic 121–151; BP diastolic 58–71; PULSE 102–119; RESP 16–35; TEMP 37.3–37.9; O2SAT 92–97; BMI 23.9
--- NOTE | 2024-05-11 18:02 | DI.RAD.S_ITS ---
PROCEDURE: XR CHEST 1V INDICATIONS: suspected sepsis TECHNIQUE: One view of the chest was acquired. COMPARISON: None. FINDINGS: Surgical changes and devices: Right chest wall port catheter with distal tip projecting over the lower SVC. Lungs and pleura: Lungs are clear. No pleural effusions or pneumothorax. Mediastinum: Mediastinal contours appear normal. Heart size is normal. Bones and chest wall: No suspicious bony lesions. Overlying soft tissues appear unremarkable. IMPRESSION: No acute cardiopulmonary abnormality is seen. Approved by: Georgette Ibrahim M.D.,Ph.D. on 05/11/2024 at 19:30
--- NOTE | 2024-05-11 18:13 | ED_ITS ---
HPI - Fever <Roxane Bagley MD - Last Filed: 05/13/24 07:36> General Chief Complaint: Fever Stated Complaint: reaction on infusion, dx lymphoma Time Seen by Provider: 05/11/24 18:03 Mode of arrival: Ambulatory History of Present Illness HPI Narrative: 59yoF abdi [facility] non-hodgkins lymphoma on rituximab and tafasitamab followed by Dr. Kuhn at [facility] presents by private vehicle for fever, nausea, abdominal pain x 4 days. Patient received her first dose of rituxumab on 05/07, and her first infusion of tafasitamab on 05/10. Patient reports T-max 101.3? at home. She called her oncologist, who referred her to the ER for evaluation. 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 Related Data Home Medications Medication Instructions Recorded Confirmed albuterol 90 mcg/actuation aerosol 90 mcg inhalation Q4HR PRN 05/13/24 05/13/24 inhaler Shortness Of Breath Or Wheezing atorvastatin 40 mg tablet 40 mg PO DAILY 05/13/24 05/13/24 baclofen 10 mg tablet 10 mg PO BID 05/13/24 05/13/24 bupropion HCl 300 mg 24 hr tablet, 300 mg PO QAM 05/13/24 05/13/24 extended release fluticasone 250 mcg-salmeterol 50 1 inh inhalation BID 05/13/24 05/13/24 mcg/dose blistr powdr for inhalation gabapentin See Rx Instructions .Route .COMPLEX 05/13/24 05/13/24 lisinopril 20 1 tab PO DAILY 05/13/24 05/13/24 mg-hydrochlorothiazide 12.5 mg tablet metoprolol tartrate 25 mg tablet 25 mg PO BID 05/13/24 05/13/24 montelukast 10 mg tablet 10 mg PO DAILY 05/13/24 05/13/24 tamsulosin 0.4 mg capsule 0.4 mg PO DAILY 05/13/24 05/13/24 warfarin See Rx Instructions .Route .COMPLEX 05/13/24 05/13/24 Allergies Allergy/AdvReac Type Severity Reaction Status Date / Time No Known Drug Allergies Allergy Verified 05/11/24 17:56 Review of Systems <Juan M Riggs MD - Last Filed: 05/14/24 09:26> Review of Systems Narrative: GENERAL: Positive chills, fatigue, malaise, fever, sweats. HEENT: Negative sinus pain, ear pain, sore throat RESPIRATORY: Negative dyspnea, cough CARDIOVASCULAR: Negative chest pain, palpitations GASTROINTESTINAL: Positive nausea, vomiting, abdominal pain : Negative dysuria, frequency, hematuria MUSCULOSKELETAL: Negative muscle or bony pain SKIN: Negative rash, skin lesions NEUROLOGIC: Negative weakness, numbness ROS Unobtainable: All systems reviewed & are unremarkable except as noted in HPI and below Patient History <Roxane Bagley MD - Last Filed: 05/13/24 07:36> Social History Smoking Status: Current every day smoker Smoking Status: Current every day smoker tobacco type: cigarettes alcohol intake frequency: holidays/special occasions only Exam <Roxane Bagley MD - Last Filed: 05/13/24 07:36> Initial Vital Signs Initial Vital Signs: Vital Signs Temperature 100.2 F H 05/11/24 17:56 Pulse Rate 119 H 05/11/24 17:56 Respiratory Rate 16 05/11/24 17:56 Blood Pressure 143/67 H 05/11/24 17:56 Pulse Oximetry 95 05/11/24 17:56 Oxygen Delivery Method Room Air 05/11/24 17:56 Const: Awake, alert, no acute distress, nontoxic appearing Cardiac: Tachycardia, regular rhythm RESP: unlabored, clear bilaterally, no wheezing GI: Soft, generalized tenderness to deep palpation, particularly right upper quadrant, no rebound or guarding Skin: Warm, Dry, intact, no rashes Neuro: AO x3, CN II-XII grossly intact, moves all extremities <Juan M Riggs MD - Last Filed: 05/14/24 09:26> Initial Vital Signs Initial Vital Signs: Vital Signs Temperature 100.2 F H 05/11/24 17:56 Pulse Rate 119 H 05/11/24 17:56 Respiratory Rate 16 05/11/24 17:56 Blood Pressure 143/67 H 05/11/24 17:56 Pulse Oximetry 95 05/11/24 17:56 Oxygen Delivery Method Room Air 05/11/24 17:56 <Roxane Whitney DO - Last Filed: 05/14/24 07:26> Initial Vital Signs Initial Vital Signs: Vital Signs Temperature 100.2 F H 05/11/24 17:56 Pulse Rate 119 H 05/11/24 17:56 Respiratory Rate 16 05/11/24 17:56 Blood Pressure 143/67 H 05/11/24 17:56 Pulse Oximetry 95 05/11/24 17:56 Oxygen Delivery Method Room Air 05/11/24 17:56 <Mike Loomis DO - Last Filed: 05/13/24 21:54> Initial Vital Signs Initial Vital Signs: Vital Signs Temperature 100.2 F H 05/11/24 17:56 Pulse Rate 119 H 05/11/24 17:56 Respiratory Rate 16 05/11/24 17:56 Blood Pressure 143/67 H 05/11/24 17:56 Pulse Oximetry 95 05/11/24 17:56 Oxygen Delivery Method Room Air 05/11/24 17:56 Course <Roxane Bagley MD - Last Filed: 05/13/24 07:36> Orders Ordered: Discontinued Medications Heparin Sodium (Porcine) (Heparin 500 Unit/5 Ml Port Flush) 500 unit IV PRN PRN PRN Reason: Flush Last Admin: 05/13/24 22:45 Dose: 500 unit Documented By: MARINO Hydromorphone HCl (Hydromorphone 0.5 Mg Inj) 0.5 mg IV NOW ONE Stop: 05/11/24 19:36 Last Admin: 05/11/24 19:46 Dose: 0.5 mg Documented By: KHADAR Hydromorphone HCl (Hydromorphone 1 Mg Inj) 1 mg IV NOW ONE Stop: 05/11/24 21:04 Last Admin: 05/11/24 21:25 Dose: 1 mg Documented By: ROBYN Hydromorphone HCl (Hydromorphone 1 Mg Inj) 1 mg IV NOW ONE Stop: 05/12/24 02:46 Last Admin: 05/12/24 02:58 Dose: 1 mg Documented By: KHADAR Hydromorphone HCl (Hydromorphone 1 Mg Inj) 1 mg IV NOW ONE Stop: 05/12/24 07:48 Last Admin: 05/12/24 08:06 Dose: 1 mg Documented By: TU Hydromorphone HCl (Hydromorphone 1 Mg Inj) 1 mg IV NOW ONE Stop: 05/12/24 15:44 Last Admin: 05/12/24 15:48 Dose: 1 mg Documented By: TU Hydromorphone HCl (Hydromorphone 1 Mg Inj) 1 mg IV NOW ONE Stop: 05/12/24 17:59 Last Admin: 05/12/24 18:05 Dose: 1 mg Documented By: TU Hydromorphone HCl (Hydromorphone 1 Mg Inj) 1 mg IV Q4H [facility] Last Admin: 05/13/24 22:33 Dose: 1 mg Documented By: Admin: 05/13/24 17:31 Dose: 1 mg Documented By: Admin: 05/13/24 14:36 Dose: 1 mg Documented By: Admin: 05/13/24 10:28 Dose: 1 mg Documented By: Admin: 05/13/24 06:42 Dose: 1 mg Documented By: Admin: 05/13/24 03:00 Dose: 1 mg Documented By: Admin: 05/12/24 22:18 Dose: 1 mg Documented By: VALERIE Sodium Chloride (Normal Saline 0.9%) 1,000 mls @ 1,000 mls/hr IV BOLUS ONE Stop: 05/11/24 19:01 Last Infusion: 05/11/24 20:52 Dose: Infused Documented By: [email or web address]) Admin: 05/11/24 18:39 Dose: 1,000 mls/hr Documented By: JOSE Cefepime HCl 2 gm/ Sodium (Chloride) 100 mls @ 200 mls/hr IV NOW ONE Stop: 05/11/24 18:05 Last Infusion: 05/11/24 19:10 Dose: Infused Documented By: Admin: 05/11/24 18:39 Dose: 200 mls/hr Documented By: JOSE Sodium Chloride (Normal Saline 0.9%) 1,000 mls @ 1,000 mls/hr IV BOLUS ONE Stop: 05/11/24 19:23 Last Infusion: 05/11/24 20:53 Dose: Infused Documented By: [email or web address]) Admin: 05/11/24 19:46 Dose: 1,000 mls/hr Documented By: KHADAR Piperacillin Sod/Tazobactam (Sod 4.5 gm/ Sodium Chloride) 100 mls @ 200 mls/hr IV Q8H [facility] Last Infusion: 05/12/24 03:35 Dose: Infused Documented By: Admin: 05/12/24 02:54 Dose: 200 mls/hr Documented By: KHADAR Piperacillin Sod/Tazobactam (Sod 3.375 gm/ Sodium Chloride) 100 mls @ 25 mls/hr IV Q8H MONA Last Infusion: 05/13/24 21:48 Dose: Infused Documented By: Admin: 05/13/24 18:15 Dose: 25 mls/hr Documented By: Infusion: 05/13/24 14:36 Dose: Infused Documented By: Admin: 05/13/24 10:31 Dose: 25 mls/hr Documented By: Infusion: 05/13/24 06:41 Dose: Infused Documented By: Admin: 05/13/24 02:52 Dose: 25 mls/hr Documented By: Infusion: 05/12/24 22:05 Dose: Infused Documented By: Admin: 05/12/24 18:06 Dose: 25 mls/hr Documented By: Infusion: 05/12/24 14:48 Dose: Infused Documented By: Admin: 05/12/24 10:37 Dose: 25 mls/hr Documented By: RB Sodium Chloride (Normal Saline 0.9%) 1,000 mls @ 150 mls/hr IV CONT MONA Sodium Chloride (Normal Saline 0.9%) 1,000 mls @ 150 mls/hr IV CONT MONA Last Infusion: 05/13/24 22:48 Dose: Infused Documented By: Admin: 05/13/24 21:40 Dose: 150 mls/hr Documented By: Infusion: 05/13/24 21:40 Dose: Infused Documented By: Admin: 05/13/24 15:01 Dose: 150 mls/hr Documented By: Infusion: 05/13/24 15:01 Dose: Infused Documented By: Admin: 05/13/24 08:46 Dose: 150 mls/hr Documented By: TU Morphine Sulfate (Morphine 4 Mg/Ml Inj) 4 mg IV NOW ONE Stop: 05/11/24 18:25 Last Admin: 05/11/24 18:39 Dose: 4 mg Documented By: JOSE Ondansetron HCl (Ondansetron 4 Mg/2 Ml Inj) 4 mg IV NOW PRN PRN Reason: Nausea And Vomiting Last Admin: 05/12/24 02:49 Dose: 4 mg Documented By: KHADAR Ondansetron HCl (Ondansetron 4 Mg Odt) 4 mg SL NOW PRN PRN Reason: Nausea And Vomiting Last Admin: 05/12/24 15:54 Dose: 4 mg Documented By: RB Ondansetron HCl (Ondansetron 4 Mg/2 Ml Inj) 4 mg IV NOW ONE Stop: 05/11/24 18:25 Last Admin: 05/11/24 18:47 Dose: Not Given Documented By: JOSE Vital Signs Vital signs: Vital Signs - 8 hr 05/13/24 14:00 05/13/24 14:00 05/13/24 14:30 Pulse Rate 97 H 98 H Respiratory Rate 19 27 H Blood Pressure 123/58 L Pulse Oximetry 97 96 05/13/24 15:00 05/13/24 15:30 05/13/24 16:00 Pulse Rate 96 H 94 H Respiratory Rate 26 H 20 Blood Pressure 130/60 Pulse Oximetry 96 95 05/13/24 16:00 05/13/24 16:30 05/13/24 17:00 Pulse Rate 95 H 96 H 100 H Respiratory Rate 28 H 35 H 30 H Blood Pressure Pulse Oximetry 96 96 96 05/13/24 17:30 05/13/24 17:35 05/13/24 17:35 Pulse Rate 100 H 100 H Respiratory Rate 31 H Blood Pressure 125/63 Pulse Oximetry 96 96 05/13/24 18:00 05/13/24 18:00 05/13/24 18:20 Pulse Rate 99 H Respiratory Rate 20 Blood Pressure 133/65 131/58 L Pulse Oximetry 95 05/13/24 18:20 05/13/24 18:30 Pulse Rate 101 H 96 H Respiratory Rate 23 Blood Pressure Pulse Oximetry 95 96 <Juan M Riggs MD - Last Filed: 05/14/24 09:26> Orders Ordered: Discontinued Medications Heparin Sodium (Porcine) (Heparin 500 Unit/5 Ml Port Flush) 500 unit IV PRN PRN PRN Reason: Flush Last Admin: 05/13/24 22:45 Dose: 500 unit Documented By: MARINO Hydromorphone HCl (Hydromorphone 0.5 Mg Inj) 0.5 mg IV NOW ONE Stop: 05/11/24 19:36 Last Admin: 05/11/24 19:46 Dose: 0.5 mg Documented By: KHADAR Hydromorphone HCl (Hydromorphone 1 Mg Inj) 1 mg IV NOW ONE Stop: 05/11/24 21:04 Last Admin: 05/11/24 21:25 Dose: 1 mg Documented By: ROBYN Hydromorphone HCl (Hydromorphone 1 Mg Inj) 1 mg IV NOW ONE Stop: 05/12/24 02:46 Last Admin: 05/12/24 02:58 Dose: 1 mg Documented By: KHADAR Hydromorphone HCl (Hydromorphone 1 Mg Inj) 1 mg IV NOW ONE Stop: 05/12/24 07:48 Last Admin: 05/12/24 08:06 Dose: 1 mg Documented By: TU Hydromorphone HCl (Hydromorphone 1 Mg Inj) 1 mg IV NOW ONE Stop: 05/12/24 15:44 Last Admin: 05/12/24 15:48 Dose: 1 mg Documented By: TU Hydromorphone HCl (Hydromorphone 1 Mg Inj) 1 mg IV NOW ONE Stop: 05/12/24 17:59 Last Admin: 05/12/24 18:05 Dose: 1 mg Documented By: TU Hydromorphone HCl (Hydromorphone 1 Mg Inj) 1 mg IV Q4H [facility] Last Admin: 05/13/24 22:33 Dose: 1 mg Documented By: Admin: 05/13/24 17:31 Dose: 1 mg Documented By: Admin: 05/13/24 14:36 Dose: 1 mg Documented By: Admin: 05/13/24 10:28 Dose: 1 mg Documented By: Admin: 05/13/24 06:42 Dose: 1 mg Documented By: Admin: 05/13/24 03:00 Dose: 1 mg Documented By: Admin: 05/12/24 22:18 Dose: 1 mg Documented By: VALERIE Sodium Chloride (Normal Saline 0.9%) 1,000 mls @ 1,000 mls/hr IV BOLUS ONE Stop: 05/11/24 19:01 Last Infusion: 05/11/24 20:52 Dose: Infused Documented By: ROBYN(2) Admin: 05/11/24 18:39 Dose: 1,000 mls/hr Documented By: JOSE Cefepime HCl 2 gm/ Sodium (Chloride) 100 mls @ 200 mls/hr IV NOW ONE Stop: 05/11/24 18:05 Last Infusion: 05/11/24 19:10 Dose: Infused Documented By: Admin: 05/11/24 18:39 Dose: 200 mls/hr Documented By: JOSE Sodium Chloride (Normal Saline 0.9%) 1,000 mls @ 1,000 mls/hr IV BOLUS ONE Stop: 05/11/24 19:23 Last Infusion: 05/11/24 20:53 Dose: Infused Documented By: ROBYN(2) Admin: 05/11/24 19:46 Dose: 1,000 mls/hr Documented By: KHADAR Piperacillin Sod/Tazobactam (Sod 4.5 gm/ Sodium Chloride) 100 mls @ 200 mls/hr IV Q8H MONA Last Infusion: 05/12/24 03:35 Dose: Infused Documented By: Admin: 05/12/24 02:54 Dose: 200 mls/hr Documented By: KHADAR Piperacillin Sod/Tazobactam (Sod 3.375 gm/ Sodium Chloride) 100 mls @ 25 mls/hr IV Q8H MONA Last Infusion: 05/13/24 21:48 Dose: Infused Documented By: Admin: 05/13/24 18:15 Dose: 25 mls/hr Documented By: Infusion: 05/13/24 14:36 Dose: Infused Documented By: Admin: 05/13/24 10:31 Dose: 25 mls/hr Documented By: Infusion: 05/13/24 06:41 Dose: Infused Documented By: Admin: 05/13/24 02:52 Dose: 25 mls/hr Documented By: Infusion: 05/12/24 22:05 Dose: Infused Documented By: Admin: 05/12/24 18:06 Dose: 25 mls/hr Documented By: Infusion: 05/12/24 14:48 Dose: Infused Documented By: Admin: 05/12/24 10:37 Dose: 25 mls/hr Documented By: RB Sodium Chloride (Normal Saline 0.9%) 1,000 mls @ 150 mls/hr IV CONT OMNA Sodium Chloride (Normal Saline 0.9%) 1,000 mls @ 150 mls/hr IV CONT MONA Last Infusion: 05/13/24 22:48 Dose: Infused Documented By: Admin: 05/13/24 21:40 Dose: 150 mls/hr Documented By: Infusion: 05/13/24 21:40 Dose: Infused Documented By: Admin: 05/13/24 15:01 Dose: 150 mls/hr Documented By: Infusion: 05/13/24 15:01 Dose: Infused Documented By: Admin: 05/13/24 08:46 Dose: 150 mls/hr Documented By: TU Morphine Sulfate (Morphine 4 Mg/Ml Inj) 4 mg IV NOW ONE Stop: 05/11/24 18:25 Last Admin: 05/11/24 18:39 Dose: 4 mg Documented By: JOSE Ondansetron HCl (Ondansetron 4 Mg/2 Ml Inj) 4 mg IV NOW PRN PRN Reason: Nausea And Vomiting Last Admin: 05/12/24 02:49 Dose: 4 mg Documented By: KHADAR Ondansetron HCl (Ondansetron 4 Mg Odt) 4 mg SL NOW PRN PRN Reason: Nausea And Vomiting Last Admin: 05/12/24 15:54 Dose: 4 mg Documented By: TU Ondansetron HCl (Ondansetron 4 Mg/2 Ml Inj) 4 mg IV NOW ONE Stop: 05/11/24 18:25 Last Admin: 05/11/24 18:47 Dose: Not Given Documented By: JOSE Vital Signs Vital signs: Vital Signs - 8 hr 05/13/24 14:00 05/13/24 14:00 05/13/24 14:30 Pulse Rate 97 H 98 H Respiratory Rate 19 27 H Blood Pressure 123/58 L Pulse Oximetry 97 96 05/13/24 15:00 05/13/24 15:30 05/13/24 16:00 Pulse Rate 96 H 94 H Respiratory Rate 26 H 20 Blood Pressure 130/60 Pulse Oximetry 96 95 05/13/24 16:00 05/13/24 16:30 05/13/24 17:00 Pulse Rate 95 H 96 H 100 H Respiratory Rate 28 H 35 H 30 H Blood Pressure Pulse Oximetry 96 96 96 05/13/24 17:30 05/13/24 17:35 05/13/24 17:35 Pulse Rate 100 H 100 H Respiratory Rate 31 H Blood Pressure 125/63 Pulse Oximetry 96 96 05/13/24 18:00 05/13/24 18:00 05/13/24 18:20 Pulse Rate 99 H Respiratory Rate 20 Blood Pressure 133/65 131/58 L Pulse Oximetry 95 05/13/24 18:20 05/13/24 18:30 Pulse Rate 101 H 96 H Respiratory Rate 23 Blood Pressure Pulse Oximetry 95 96 <Roxane Whitney, DO - Last Filed: 05/14/24 07:26> Orders Ordered: Discontinued Medications Heparin Sodium (Porcine) (Heparin 500 Unit/5 Ml Port Flush) 500 unit IV PRN PRN PRN Reason: Flush Last Admin: 05/13/24 22:45 Dose: 500 unit Documented By: MARINO Hydromorphone HCl (Hydromorphone 0.5 Mg Inj) 0.5 mg IV NOW ONE Stop: 05/11/24 19:36 Last Admin: 05/11/24 19:46 Dose: 0.5 mg Documented By: KHADAR Hydromorphone HCl (Hydromorphone 1 Mg Inj) 1 mg IV NOW ONE Stop: 05/11/24 21:04 Last Admin: 05/11/24 21:25 Dose: 1 mg Documented By: ROBYN Hydromorphone HCl (Hydromorphone 1 Mg Inj) 1 mg IV NOW ONE Stop: 05/12/24 02:46 Last Admin: 05/12/24 02:58 Dose: 1 mg Documented By: KHADAR Hydromorphone HCl (Hydromorphone 1 Mg Inj) 1 mg IV NOW ONE Stop: 05/12/24 07:48 Last Admin: 05/12/24 08:06 Dose: 1 mg Documented By: TU Hydromorphone HCl (Hydromorphone 1 Mg Inj) 1 mg IV NOW ONE Stop: 05/12/24 15:44 Last Admin: 05/12/24 15:48 Dose: 1 mg Documented By: TU Hydromorphone HCl (Hydromorphone 1 Mg Inj) 1 mg IV NOW ONE Stop: 05/12/24 17:59 Last Admin: 05/12/24 18:05 Dose: 1 mg Documented By: TU Hydromorphone HCl (Hydromorphone 1 Mg Inj) 1 mg IV Q4H [facility] Last Admin: 05/13/24 22:33 Dose: 1 mg Documented By: Admin: 05/13/24 17:31 Dose: 1 mg Documented By: Admin: 05/13/24 14:36 Dose: 1 mg Documented By: Admin: 05/13/24 10:28 Dose: 1 mg Documented By: Admin: 05/13/24 06:42 Dose: 1 mg Documented By: Admin: 05/13/24 03:00 Dose: 1 mg Documented By: Admin: 05/12/24 22:18 Dose: 1 mg Documented By: VALERIE Sodium Chloride (Normal Saline 0.9%) 1,000 mls @ 1,000 mls/hr IV BOLUS ONE Stop: 05/11/24 19:01 Last Infusion: 05/11/24 20:52 Dose: Infused Documented By: [email or web address]) Admin: 05/11/24 18:39 Dose: 1,000 mls/hr Documented By: JOSE Cefepime HCl 2 gm/ Sodium (Chloride) 100 mls @ 200 mls/hr IV NOW ONE Stop: 05/11/24 18:05 Last Infusion: 05/11/24 19:10 Dose: Infused Documented By: Admin: 05/11/24 18:39 Dose: 200 mls/hr Documented By: JOSE Sodium Chloride (Normal Saline 0.9%) 1,000 mls @ 1,000 mls/hr IV BOLUS ONE Stop: 05/11/24 19:23 Last Infusion: 05/11/24 20:53 Dose: Infused Documented By: [email or web address]) Admin: 05/11/24 19:46 Dose: 1,000 mls/hr Documented By: KHADAR Piperacillin Sod/Tazobactam (Sod 4.5 gm/ Sodium Chloride) 100 mls @ 200 mls/hr IV Q8H [facility] Last Infusion: 05/12/24 03:35 Dose: Infused Documented By: Admin: 05/12/24 02:54 Dose: 200 mls/hr Documented By: KHADAR Piperacillin Sod/Tazobactam (Sod 3.375 gm/ Sodium Chloride) 100 mls @ 25 mls/hr IV Q8H [facility] Last Infusion: 05/13/24 21:48 Dose: Infused Documented By: Admin: 05/13/24 18:15 Dose: 25 mls/hr Documented By: Infusion: 05/13/24 14:36 Dose: Infused Documented By: Admin: 05/13/24 10:31 Dose: 25 mls/hr Documented By: Infusion: 05/13/24 06:41 Dose: Infused Documented By: Admin: 05/13/24 02:52 Dose: 25 mls/hr Documented By: Infusion: 05/12/24 22:05 Dose: Infused Documented By: Admin: 05/12/24 18:06 Dose: 25 mls/hr Documented By: Infusion: 05/12/24 14:48 Dose: Infused Documented By: Admin: 05/12/24 10:37 Dose: 25 mls/hr Documented By: TU Sodium Chloride (Normal Saline 0.9%) 1,000 mls @ 150 mls/hr IV CONT MNOA Sodium Chloride (Normal Saline 0.9%) 1,000 mls @ 150 mls/hr IV CONT MONA Last Infusion: 05/13/24 22:48 Dose: Infused Documented By: Admin: 05/13/24 21:40 Dose: 150 mls/hr Documented By: Infusion: 05/13/24 21:40 Dose: Infused Documented By: Admin: 05/13/24 15:01 Dose: 150 mls/hr Documented By: Infusion: 05/13/24 15:01 Dose: Infused Documented By: Admin: 05/13/24 08:46 Dose: 150 mls/hr Documented By: TU Morphine Sulfate (Morphine 4 Mg/Ml Inj) 4 mg IV NOW ONE Stop: 05/11/24 18:25 Last Admin: 05/11/24 18:39 Dose: 4 mg Documented By: JOSE Ondansetron HCl (Ondansetron 4 Mg/2 Ml Inj) 4 mg IV NOW PRN PRN Reason: Nausea And Vomiting Last Admin: 05/12/24 02:49 Dose: 4 mg Documented By: KHADAR Ondansetron HCl (Ondansetron 4 Mg Odt) 4 mg SL NOW PRN PRN Reason: Nausea And Vomiting Last Admin: 05/12/24 15:54 Dose: 4 mg Documented By: TU Ondansetron HCl (Ondansetron 4 Mg/2 Ml Inj) 4 mg IV NOW ONE Stop: 05/11/24 18:25 Last Admin: 05/11/24 18:47 Dose: Not Given Documented By: JOSE Vital Signs Vital signs: Vital Signs - 8 hr 05/13/24 14:00 05/13/24 14:00 05/13/24 14:30 Pulse Rate 97 H 98 H Respiratory Rate 19 27 H Blood Pressure 123/58 L Pulse Oximetry 97 96 05/13/24 15:00 05/13/24 15:30 05/13/24 16:00 Pulse Rate 96 H 94 H Respiratory Rate 26 H 20 Blood Pressure 130/60 Pulse Oximetry 96 95 05/13/24 16:00 05/13/24 16:30 05/13/24 17:00 Pulse Rate 95 H 96 H 100 H Respiratory Rate 28 H 35 H 30 H Blood Pressure Pulse Oximetry 96 96 96 05/13/24 17:30 05/13/24 17:35 05/13/24 17:35 Pulse Rate 100 H 100 H Respiratory Rate 31 H Blood Pressure 125/63 Pulse Oximetry 96 96 05/13/24 18:00 05/13/24 18:00 05/13/24 18:20 Pulse Rate 99 H Respiratory Rate 20 Blood Pressure 133/65 131/58 L Pulse Oximetry 95 05/13/24 18:20 05/13/24 18:30 Pulse Rate 101 H 96 H Respiratory Rate 23 Blood Pressure Pulse Oximetry 95 96 <Mike Loomis, - Last Filed: 05/13/24 21:54> Orders Ordered: Discontinued Medications Heparin Sodium (Porcine) (Heparin 500 Unit/5 Ml Port Flush) 500 unit IV PRN PRN PRN Reason: Flush Last Admin: 05/13/24 22:45 Dose: 500 unit Documented By: MARINO Hydromorphone HCl (Hydromorphone 0.5 Mg Inj) 0.5 mg IV NOW ONE Stop: 05/11/24 19:36 Last Admin: 05/11/24 19:46 Dose: 0.5 mg Documented By: KHADAR Hydromorphone HCl (Hydromorphone 1 Mg Inj) 1 mg IV NOW ONE Stop: 05/11/24 21:04 Last Admin: 05/11/24 21:25 Dose: 1 mg Documented By: ROBYN Hydromorphone HCl (Hydromorphone 1 Mg Inj) 1 mg IV NOW ONE Stop: 05/12/24 02:46 Last Admin: 05/12/24 02:58 Dose: 1 mg Documented By: KHADAR Hydromorphone HCl (Hydromorphone 1 Mg Inj) 1 mg IV NOW ONE Stop: 05/12/24 07:48 Last Admin: 05/12/24 08:06 Dose: 1 mg Documented By: TU Hydromorphone HCl (Hydromorphone 1 Mg Inj) 1 mg IV NOW ONE Stop: 05/12/24 15:44 Last Admin: 05/12/24 15:48 Dose: 1 mg Documented By: TU Hydromorphone HCl (Hydromorphone 1 Mg Inj) 1 mg IV NOW ONE Stop: 05/12/24 17:59 Last Admin: 05/12/24 18:05 Dose: 1 mg Documented By: TU Hydromorphone HCl (Hydromorphone 1 Mg Inj) 1 mg IV Q4H [facility] Last Admin: 05/13/24 22:33 Dose: 1 mg Documented By: Admin: 05/13/24 17:31 Dose: 1 mg Documented By: Admin: 05/13/24 14:36 Dose: 1 mg Documented By: Admin: 05/13/24 10:28 Dose: 1 mg Documented By: Admin: 05/13/24 06:42 Dose: 1 mg Documented By: Admin: 05/13/24 03:00 Dose: 1 mg Documented By: Admin: 05/12/24 22:18 Dose: 1 mg Documented By: VALERIE Sodium Chloride (Normal Saline 0.9%) 1,000 mls @ 1,000 mls/hr IV BOLUS ONE Stop: 05/11/24 19:01 Last Infusion: 05/11/24 20:52 Dose: Infused Documented By: [email or web address]) Admin: 05/11/24 18:39 Dose: 1,000 mls/hr Documented By: JOSE Cefepime HCl 2 gm/ Sodium (Chloride) 100 mls @ 200 mls/hr IV NOW ONE Stop: 05/11/24 18:05 Last Infusion: 05/11/24 19:10 Dose: Infused Documented By: Admin: 05/11/24 18:39 Dose: 200 mls/hr Documented By: JOSE Sodium Chloride (Normal Saline 0.9%) 1,000 mls @ 1,000 mls/hr IV BOLUS ONE Stop: 05/11/24 19:23 Last Infusion: 05/11/24 20:53 Dose: Infused Documented By: [email or web address]) Admin: 05/11/24 19:46 Dose: 1,000 mls/hr Documented By: KHADAR Piperacillin Sod/Tazobactam (Sod 4.5 gm/ Sodium Chloride) 100 mls @ 200 mls/hr IV Q8H [facility] Last Infusion: 05/12/24 03:35 Dose: Infused Documented By: Admin: 05/12/24 02:54 Dose: 200 mls/hr Documented By: KHADAR Piperacillin Sod/Tazobactam (Sod 3.375 gm/ Sodium Chloride) 100 mls @ 25 mls/hr IV Q8H MONA Last Infusion: 05/13/24 21:48 Dose: Infused Documented By: Admin: 05/13/24 18:15 Dose: 25 mls/hr Documented By: Infusion: 05/13/24 14:36 Dose: Infused Documented By: Admin: 05/13/24 10:31 Dose: 25 mls/hr Documented By: Infusion: 05/13/24 06:41 Dose: Infused Documented By: Admin: 05/13/24 02:52 Dose: 25 mls/hr Documented By: Infusion: 05/12/24 22:05 Dose: Infused Documented By: Admin: 05/12/24 18:06 Dose: 25 mls/hr Documented By: Infusion: 05/12/24 14:48 Dose: Infused Documented By: Admin: 05/12/24 10:37 Dose: 25 mls/hr Documented By: RB Sodium Chloride (Normal Saline 0.9%) 1,000 mls @ 150 mls/hr IV CONT MONA Sodium Chloride (Normal Saline 0.9%) 1,000 mls @ 150 mls/hr IV CONT MONA Last Infusion: 05/13/24 22:48 Dose: Infused Documented By: Admin: 05/13/24 21:40 Dose: 150 mls/hr Documented By: Infusion: 05/13/24 21:40 Dose: Infused Documented By: Admin: 05/13/24 15:01 Dose: 150 mls/hr Documented By: Infusion: 05/13/24 15:01 Dose: Infused Documented By: Admin: 05/13/24 08:46 Dose: 150 mls/hr Documented By: RB Morphine Sulfate (Morphine 4 Mg/Ml Inj) 4 mg IV NOW ONE Stop: 05/11/24 18:25 Last Admin: 05/11/24 18:39 Dose: 4 mg Documented By: JOSE Ondansetron HCl (Ondansetron 4 Mg/2 Ml Inj) 4 mg IV NOW PRN PRN Reason: Nausea And Vomiting Last Admin: 05/12/24 02:49 Dose: 4 mg Documented By: KHADAR Ondansetron HCl (Ondansetron 4 Mg Odt) 4 mg SL NOW PRN PRN Reason: Nausea And Vomiting Last Admin: 05/12/24 15:54 Dose: 4 mg Documented By: RB Ondansetron HCl (Ondansetron 4 Mg/2 Ml Inj) 4 mg IV NOW ONE Stop: 05/11/24 18:25 Last Admin: 05/11/24 18:47 Dose: Not Given Documented By: JOSE Vital Signs Vital signs: Vital Signs - 8 hr 05/13/24 14:00 05/13/24 14:00 05/13/24 14:30 Pulse Rate 97 H 98 H Respiratory Rate 19 27 H Blood Pressure 123/58 L Pulse Oximetry 97 96 05/13/24 15:00 05/13/24 15:30 05/13/24 16:00 Pulse Rate 96 H 94 H Respiratory Rate 26 H 20 Blood Pressure 130/60 Pulse Oximetry 96 95 05/13/24 16:00 05/13/24 16:30 05/13/24 17:00 Pulse Rate 95 H 96 H 100 H Respiratory Rate 28 H 35 H 30 H Blood Pressure Pulse Oximetry 96 96 96 05/13/24 17:30 05/13/24 17:35 05/13/24 17:35 Pulse Rate 100 H 100 H Respiratory Rate 31 H Blood Pressure 125/63 Pulse Oximetry 96 96 05/13/24 18:00 05/13/24 18:00 05/13/24 18:20 Pulse Rate 99 H Respiratory Rate 20 Blood Pressure 133/65 131/58 L Pulse Oximetry 95 05/13/24 18:20 05/13/24 18:30 Pulse Rate 101 H 96 H Respiratory Rate 23 Blood Pressure Pulse Oximetry 95 96 MDM - Fever <Roxane Bagley MD - Last Filed: 05/13/24 07:36> Lab Data 05/12/24 06:50 05/12/24 06:50 Labs: Lab Results 05/11/24 05/11/24 05/12/24 Range/Units 18:05 18:20 06:50 WBC 14.4 H 9.6 (4.5-11.0) X10^3/uL RBC 4.02 3.54 L (4.0-5.2) X10^6/uL Hgb 10.6 L 9.5 L (12.0-16.0) g/dL Hct 32.3 L 28.3 L (36-46) % MCV 80.4 79.9 L (80-100) fL MCH 26.4 26.8 (26-34) PG MCHC 32.8 33.6 (30-36) % RDW 15.5 H 15.5 H (11.6-14.8) % Plt Count 284 222 (150-400) X10^3/uL Neut % (Auto) Not Reportable 78.6 H Lymph % (Auto) Not Reportable 9.4 L [place] % (Auto) Not Reportable 10.9 Eos % (Auto) Not Reportable 0.9 L Baso % (Auto) Not Reportable 0.2 Neut # (Auto) 7500 H (1919-3380) /uL Lymph # (Auto) Not Reportable 900 L [place] # (Auto) Not Reportable 1000 H Eos # (Auto) 100 (0-450) /uL Baso # (Auto) Not Reportable 0 Total Counted 100 Seg Neutrophils % 86.0 H (38-70) % Band Neutrophils % 5.0 (3-7) % Lymphocytes % (Manual) 6.0 L (25-45) % Monocytes % (Manual) 2.0 (2-11) % Basophils % (Manual) 1.0 (0-1) % Neutrophils # (Manual) 94775 H (6569-6026) /uL RBC Morphology See below Anisocytosis 1+ H PT 15.8 H (9.4-12.5) SECONDS INR 1.4 H (0.9-1.3) APTT 35 (25.1-36.5) SECONDS Sodium 133 L 134 L (137-145) mmol/L Potassium 3.4 3.4 (3.4-5.1) mmol/L Chloride 98 102 (98-107) mmol/L Carbon Dioxide 30 31 (22-32) mmol/L BUN 10 7 (7-17) mg/dL Creatinine 0.61 0.56 (0.52-1.04) mg/dL Estimated GFR > 60 > 60 (>60) mL/min BUN/Creatinine Ratio 16.4 12.5 (6-22) Glucose 101 H 88 (70-100) mg/dL Lactate 1.1 (0.7-2.1) mmol/L Calcium 8.8 8.3 L (8.4-10.2) mg/dL Total Bilirubin 1.0 0.8 (0.2-1.3) mg/dL AST 39 H 35 (14-36) IU/L ALT 24 21 (<35) IU/L Alkaline Phosphatase 133 H 120 (38-126) U/L Lactate Dehydrogenase 702 H (120-246) U/L Total Protein 6.2 L 5.7 L (6.3-8.2) g/dL Albumin 3.5 3.0 L (3.5-5.0) g/dL Globulin 2.7 2.7 (1.7-4.1) g/dL Albumin/Globulin Ratio 1.3 1.1 (1.0-2.8) Lipase 45 (23-300) U/L Procalcitonin 0.133 (<0.5) ng/mL Urine RBC None seen (0-5/HPF) Urine WBC 1-5/hpf (0-5/HPF) Ur Squamous Epith Cells 1-5 /hpf (0-5/HPF) Ur Transition Epith Cell 0-1/hpf (0-5/HPF) Urine Bacteria Many (>30) H (None) Ur Culture Indicated? Specimen cultured Vol Urine Centrifuged 10ml (spun) Urine Dip Bedside Urine Glucose Negative Bedside Urine Bilirubin - Negative Bedside Urine Ketone - Negative Urine Specific Lisco 1.010 Bedside Urine Occult Blood - Negative Bedside Urine pH 7.0 Bedside Urine Protein +/- 15 Bedside Urine Urobilinogen +/- 1mg Bedside Urine Nitrite - Negative Bedside Urine Leukocytes ++ 125 Esterase Imaging Data Chest x-ray: Radiologist's Impression: PROCEDURE: XR CHEST 1V INDICATIONS: suspected sepsis TECHNIQUE: One view of the chest was acquired. COMPARISON: None. FINDINGS: Surgical changes and devices: Right chest wall port catheter with distal tip projecting over the lower SVC. Lungs and pleura: Lungs are clear. No pleural effusions or pneumothorax. Mediastinum: Mediastinal contours appear normal. Heart size is normal. Bones and chest wall: No suspicious bony lesions. Overlying soft tissues appear unremarkable. IMPRESSION: No acute cardiopulmonary abnormality is seen. Approved by: Georgette Ibrahim M.D.,Ph.D. on 05/11/2024 at 19:30 CT scan - abdomen/pelvis: Radiologist's Impression: PROCEDURE: CT ABDOMEN PELVIS W CON INDICATIONS: GEN ABD PAIN, VOMITING, HX NON-HODGKINS LYMPHOMA TECHNIQUE: After the administration of intravenous contrast, axial sections acquired from the lung bases to the pubic symphysis. Coronal and sagittal reformats were performed. For radiation dose reduction, the following was used: automated exposure control, adjustment of mA and/or kV according to patient size. COMPARISON: [facility], CT, CT ABDOMEN PELVIS W CON, 03/24/2024, 22:09. FINDINGS: Image quality: Diagnostic. Lower Chest: No significant findings. ABDOMEN: Liver: No solid mass. Gallbladder: There is significant gallbladder wall thickening and small to moderate amount of pericholecystic fluid. No calcified gallstone is seen. Biliary ducts: Pneumobilia is again seen predominantly involving left hepatic lobe not significantly changed from prior study. Common bile duct stent is again seen and is grossly patent. Pancreas: Patient's known 7.8 x 6.5 cm lobulated mass arising from pancreatic head extending into nikolas habitus and pericaval region is again seen currently measures up to 8.8 x 6.5 cm in largest craniocaudal and transverse dimensions series 4, image 50 and series 5, image 75. The mass surrounds and attenuates the main portal vein, hepatic vein, hepatic artery and retro Paddock inferior renal cava not significantly changed from prior study. Spleen: Enlarged without discrete splenic lesion. Adrenal Glands: No adrenal nodules. Kidneys and Ureters: No hydronephrosis. No solid mass. No complex renal cystic lesion which requires follow up. Stomach and Bowel: Fecal stasis in the colon is seen. No abnormal bowel wall thickening or mesenteric fat stranding. No abscess collection. Peritoneum: There is no peritoneal free air. Small to moderate amount of free fluid in lower abdomen and pelvis is seen. Ventral Wall: No significant ventral hernia. Abdominal Nodes: Extensive retroperitoneal adenopathy particularly involving aortocaval region further increased in size compared to previous study now measures up to 3.8 x 3.3 cm in size series 2, image 70. Vessels: Aorta and inferior vena cava are normal in size. Atherosclerotic calcifications are noted in abdominal aorta. PELVIS: Pelvic Organs: Unremarkable. Bladder: No bladder wall thickening, accounting for underdistention. Pelvic Nodes: No enlarged lymph nodes. Miscellaneous: No inguinal hernias are seen. Bones: No aggressive osseous abnormality. IMPRESSION: 1. Interval further increase in size of patient's known pancreatic head mass with significant mass effect on the adjacent vessels. 2. Interval worsening of retroperitoneal lymphadenopathy as described above. 3. Small to moderate amount of lower abdominal and pelvic free fluid. No gross free air. No bowel obstruction or abnormal bowel wall thickening. 4. Distended gallbladder with gallbladder wall thickening and pericholecystic fluid concerning for acute cholecystitis new since previous study. Dictated by: Xander Blanchard M.D. on 05/11/2024 at 20:08 Approved by: Xander Blanchard M.D. on 05/11/2024 at 20:19 US - abdomen: Radiologist's Impression: PROCEDURE: US ABDOMEN LIMITED INDICATIONS: ABD PAIN, GB DILATION TECHNIQUE: Real-time scanning was performed of the abdominal and retroperitoneal organs, with image documentation. COMPARISON: [facility], US, US ABDOMEN LIMITED, 02/21/2024, 12:04. [facility], CT, CT ABDOMEN PELVIS W CON, 05/11/2024, 19:04. FINDINGS: Liver: Liver is normal in size and homogeneous in echotexture. Gallbladder: Sludge filled gallbladder lumen is seen with gallbladder wall thickening measures up to 8.7 mm in thickness. No gross pericholecystic fluid. Positive sonographic Hurt sign is seen. Biliary ducts: Intrahepatic bile ducts are non-dilated. Extrahepatic bile duct caliber measures 4.5 mm. Normal is 6-7 mm or less in diameter, or 10 mm or less post-cholecystectomy. Pancreas: Patient's known large solid mass in pancreatic head region is again seen measures 9.6 x 8.1 x 10.2 cm in size. Miscellaneous: No free abdominal fluid. IMPRESSION: 1. Sludge material and possible small stones within gallbladder lumen. Gallbladder wall thickening and positive sonographic Hurt sign suggestive of acute cholecystitis. 2. No biliary ductal dilatation. 3. Again noted is large lobulated solid mass involving pancreatic head region measures 9.6 x 8.1 x 10.2 cm in size. Dictated by: Xander Blanchard M.D. on 05/12/2024 at 0:11 Approved by: Xander Blanchard M.D. on 05/12/2024 at 0:13 MDM Narrative Medical decision making narrative: Fever, nausea, vomiting in patient recently starting chemotherapy. Patient found to have low-grade temperature 100.2? on arrival with tachycardia. Given patient's history sepsis alert initiated with broad-spectrum antibiotics initiated. Pain medications, fluids, antiemetics ordered. Laboratory work shows WBC count 14.4, hemoglobin 10.6, platelet count 284, sodium 133, potassium 3.4, creatinine 0.61, lactic acid 1.1, T bili 1.0, AST 39, ALT 24, alk phos 133, LDH 702, procalcitonin 0.133. CT of the abdomen and pelvis shows findings concerning for cholecystitis with enlargement of lymphadenopathy and peripancreatic head mass disease burden. Pneumobilia seen consistent with the patient's given history of biliary stent. Case discussed with Dr. Lewis of General surgery, who stated that with history of stent, fever, and other history patient should most likely be transferred to higher level of care for possible ERCP. Images pushed to [facility] for review. Received a call back from the transfer center. They told me that the physician on ERCP called reviewed the patient's images. They state that the peripancreatic fluid is similar to previous and with the given history patient was not need an ERCP at this time. I do still feel that the patient would benefit from a higher level of care and requested to speak with Oncology. Case discussed with on-call Oncology through [facility]. They state that patient is on experimental therapy and since they are in clinical trial phase it would be best to try to avoid surgery if at all possible. Patient can most likely be sent to [facility], however oncology bed not available until tomorrow at earliest. patient amenable to transfer at this time. May 12, 2024 at 7:[address] Riggs: Sign out from Dr. Bagley. Patient needs to be transferred to [facility] for continuity of care for patients oncology needs and surgical needs. Oncology prefers no surgery at this time as patient is on clinical trial of chemotherapy. Antibiotics have been started. Sepsis protocol started. Will need call back from Oncology at [facility] with [facility]. Dr. Bagley - no events noted overnight. Accepted at [facility], pending bed assignment. <Juan M Riggs MD - Last Filed: 05/14/24 09:26> Lab Data Labs: Lab Results 05/11/24 05/11/24 05/12/24 Range/Units 18:05 18:20 06:50 WBC 14.4 H 9.6 (4.5-11.0) X10^3/uL RBC 4.02 3.54 L (4.0-5.2) X10^6/uL Hgb 10.6 L 9.5 L (12.0-16.0) g/dL Hct 32.3 L 28.3 L (36-46) % MCV 80.4 79.9 L (80-100) fL MCH 26.4 26.8 (26-34) PG MCHC 32.8 33.6 (30-36) % RDW 15.5 H 15.5 H (11.6-14.8) % Plt Count 284 222 (150-400) X10^3/uL Neut % (Auto) Not Reportable 78.6 H Lymph % (Auto) Not Reportable 9.4 L [place] % (Auto) Not Reportable 10.9 Eos % (Auto) Not Reportable 0.9 L Baso % (Auto) Not Reportable 0.2 Neut # (Auto) 7500 H (4194-5266) /uL Lymph # (Auto) Not Reportable 900 L [place] # (Auto) Not Reportable 1000 H Eos # (Auto) 100 (0-450) /uL Baso # (Auto) Not Reportable 0 Total Counted 100 Seg Neutrophils % 86.0 H (38-70) % Band Neutrophils % 5.0 (3-7) % Lymphocytes % (Manual) 6.0 L (25-45) % Monocytes % (Manual) 2.0 (2-11) % Basophils % (Manual) 1.0 (0-1) % Neutrophils # (Manual) 71665 H (4469-0609) /uL RBC Morphology See below Anisocytosis 1+ H PT 15.8 H (9.4-12.5) SECONDS INR 1.4 H (0.9-1.3) APTT 35 (25.1-36.5) SECONDS Sodium 133 L 134 L (137-145) mmol/L Potassium 3.4 3.4 (3.4-5.1) mmol/L Chloride 98 102 (98-107) mmol/L Carbon Dioxide 30 31 (22-32) mmol/L BUN 10 7 (7-17) mg/dL Creatinine 0.61 0.56 (0.52-1.04) mg/dL Estimated GFR > 60 > 60 (>60) mL/min BUN/Creatinine Ratio 16.4 12.5 (6-22) Glucose 101 H 88 (70-100) mg/dL Lactate 1.1 (0.7-2.1) mmol/L Calcium 8.8 8.3 L (8.4-10.2) mg/dL Total Bilirubin 1.0 0.8 (0.2-1.3) mg/dL AST 39 H 35 (14-36) IU/L ALT 24 21 (<35) IU/L Alkaline Phosphatase 133 H 120 (38-126) U/L Lactate Dehydrogenase 702 H (120-246) U/L Total Protein 6.2 L 5.7 L (6.3-8.2) g/dL Albumin 3.5 3.0 L (3.5-5.0) g/dL Globulin 2.7 2.7 (1.7-4.1) g/dL Albumin/Globulin Ratio 1.3 1.1 (1.0-2.8) Lipase 45 (23-300) U/L Procalcitonin 0.133 (<0.5) ng/mL Urine RBC None seen (0-5/HPF) Urine WBC 1-5/hpf (0-5/HPF) Ur Squamous Epith Cells 1-5 /hpf (0-5/HPF) Ur Transition Epith Cell 0-1/hpf (0-5/HPF) Urine Bacteria Many (>30) H (None) Ur Culture Indicated? Specimen cultured Vol Urine Centrifuged 10ml (spun) Urine Dip Bedside Urine Glucose Negative Bedside Urine Bilirubin - Negative Bedside Urine Ketone - Negative Urine Specific Lisco 1.010 Bedside Urine Occult Blood - Negative Bedside Urine pH 7.0 Bedside Urine Protein +/- 15 Bedside Urine Urobilinogen +/- 1mg Bedside Urine Nitrite - Negative Bedside Urine Leukocytes ++ 125 Esterase MDM Narrative Medical decision making narrative: Fever, nausea, vomiting in patient recently starting chemotherapy. Patient found to have low-grade temperature 100.2? on arrival with tachycardia. Given patient's history sepsis alert initiated with broad-spectrum antibiotics initiated. Pain medications, fluids, antiemetics ordered. Laboratory work shows WBC count 14.4, hemoglobin 10.6, platelet count 284, sodium 133, potassium 3.4, creatinine 0.61, lactic acid 1.1, T bili 1.0, AST 39, ALT 24, alk phos 133, LDH 702, procalcitonin 0.133. CT of the abdomen and pelvis shows findings concerning for cholecystitis with enlargement of lymphadenopathy and peripancreatic head mass disease burden. Pneumobilia seen consistent with the patient's given history of biliary stent. Case discussed with Dr. Lewis of General surgery, who stated that with history of stent, fever, and other history patient should most likely be transferred to higher level of care for possible ERCP. Images pushed to [facility] for review. Received a call back from the transfer center. They told me that the physician on ERCP called reviewed the patient's images. They state that the peripancreatic fluid is similar to previous and with the given history patient was not need an ERCP at this time. I do still feel that the patient would benefit from a higher level of care and requested to speak with Oncology. Case discussed with on-call Oncology through [facility]. They state that patient is on experimental therapy and since they are in clinical trial phase it would be best to try to avoid surgery if at all possible. Patient can most likely be sent to [facility], however oncology bed not available until tomorrow at earliest. patient amenable to transfer at this time. May 12, 2024 at 7:[address] Riggs: Sign out from Dr. Bagley. Patient needs to be transferred to [facility] for continuity of care for patients oncology needs and surgical needs. Oncology prefers no surgery at this time as patient is on clinical trial of chemotherapy. Antibiotics have been started. Sepsis protocol started. Will need call back from Oncology at [facility] with [facility]. 10:[address] Riggs: Still no bed available with [facility]. 2:[address] Riggs. Staff has updated patient still no bed available. 6:[address] Riggs: Dr. Bagley has returned to shift this evening. Patient is still here, no bed. No new events during course of the day Dr. Bagley - no events noted overnight. Accepted at [facility], pending bed assignment. 05/13/2024 Dr. Whitney: Patient signed out to myself while awaiting bed assignment. Patient's labs and workup were reviewed to slightly tachycardic afebrile this morning. Patient states she was feeling much improved from yesterday states she was still some pain but that the pain medicine has been helpful. She was well- appearing with no complaints. Contacted the hospital several times thru the day regarding bed status. None available currently. Dr Loomis: Received turned over. Review patient's history and physical. Review patient's workup up to this point. Had a discussion with the patient regarding her stay here in the emergency department. She has been here for approximately 48 hours. States she was feeling ?much better? she was not vomiting. No fevers. She was questioning the reason for the transfer to [facility]. I discussed with her the findings of the workup here in the ER. Discussed with her the concern that she was having an active infection of her gallbladder. I did discuss with her that a transfer to the [facility] was based upon the recommendations of the oncology staff that was consulted initially when she was here in the ER. She stated that she did not feel like she needed transferred. Stated that the only reason that she initially came to the emergency department was the thought that she was having a reaction to an infusion that she would received. There was no indication of any active reaction going on currently. She stated that she has an appointment already scheduled with her oncologist for tomorrow. She stated that she would like to be discharged. Patient signed against medical advice paperwork. Patient was alert and oriented x3. GCS 15 in my opinion has capacity to make decisions. <Roxane Whitney, DO - Last Filed: 05/14/24 07:26> Lab Data Labs: Lab Results 05/11/24 05/11/24 05/12/24 Range/Units 18:05 18:20 06:50 WBC 14.4 H 9.6 (4.5-11.0) X10^3/uL RBC 4.02 3.54 L (4.0-5.2) X10^6/uL Hgb 10.6 L 9.5 L (12.0-16.0) g/dL Hct 32.3 L 28.3 L (36-46) % MCV 80.4 79.9 L (80-100) fL MCH 26.4 26.8 (26-34) PG MCHC 32.8 33.6 (30-36) % RDW 15.5 H 15.5 H (11.6-14.8) % Plt Count 284 222 (150-400) X10^3/uL Neut % (Auto) Not Reportable 78.6 H Lymph % (Auto) Not Reportable 9.4 L [place] % (Auto) Not Reportable 10.9 Eos % (Auto) Not Reportable 0.9 L Baso % (Auto) Not Reportable 0.2 Neut # (Auto) 7500 H (0417-4539) /uL Lymph # (Auto) Not Reportable 900 L [place] # (Auto) Not Reportable 1000 H Eos # (Auto) 100 (0-450) /uL Baso # (Auto) Not Reportable 0 Total Counted 100 Seg Neutrophils % 86.0 H (38-70) % Band Neutrophils % 5.0 (3-7) % Lymphocytes % (Manual) 6.0 L (25-45) % Monocytes % (Manual) 2.0 (2-11) % Basophils % (Manual) 1.0 (0-1) % Neutrophils # (Manual) 47175 H (8807-0935) /uL RBC Morphology See below Anisocytosis 1+ H PT 15.8 H (9.4-12.5) SECONDS INR 1.4 H (0.9-1.3) APTT 35 (25.1-36.5) SECONDS Sodium 133 L 134 L (137-145) mmol/L Potassium 3.4 3.4 (3.4-5.1) mmol/L Chloride 98 102 (98-107) mmol/L Carbon Dioxide 30 31 (22-32) mmol/L BUN 10 7 (7-17) mg/dL Creatinine 0.61 0.56 (0.52-1.04) mg/dL Estimated GFR > 60 > 60 (>60) mL/min BUN/Creatinine Ratio 16.4 12.5 (6-22) Glucose 101 H 88 (70-100) mg/dL Lactate 1.1 (0.7-2.1) mmol/L Calcium 8.8 8.3 L (8.4-10.2) mg/dL Total Bilirubin 1.0 0.8 (0.2-1.3) mg/dL AST 39 H 35 (14-36) IU/L ALT 24 21 (<35) IU/L Alkaline Phosphatase 133 H 120 (38-126) U/L Lactate Dehydrogenase 702 H (120-246) U/L Total Protein 6.2 L 5.7 L (6.3-8.2) g/dL Albumin 3.5 3.0 L (3.5-5.0) g/dL Globulin 2.7 2.7 (1.7-4.1) g/dL Albumin/Globulin Ratio 1.3 1.1 (1.0-2.8) Lipase 45 (23-300) U/L Procalcitonin 0.133 (<0.5) ng/mL Urine RBC None seen (0-5/HPF) Urine WBC 1-5/hpf (0-5/HPF) Ur Squamous Epith Cells 1-5 /hpf (0-5/HPF) Ur Transition Epith Cell 0-1/hpf (0-5/HPF) Urine Bacteria Many (>30) H (None) Ur Culture Indicated? Specimen cultured Vol Urine Centrifuged 10ml (spun) Urine Dip Bedside Urine Glucose Negative Bedside Urine Bilirubin - Negative Bedside Urine Ketone - Negative Urine Specific [place] 1.010 Bedside Urine Occult Blood - Negative Bedside Urine pH 7.0 Bedside Urine Protein +/- 15 Bedside Urine Urobilinogen +/- 1mg Bedside Urine Nitrite - Negative Bedside Urine Leukocytes ++ 125 Esterase MDM Narrative Medical decision making narrative: Fever, nausea, vomiting in patient recently starting chemotherapy. Patient found to have low-grade temperature 100.2? on arrival with tachycardia. Given patient's history sepsis alert initiated with broad-spectrum antibiotics initiated. Pain medications, fluids, antiemetics ordered. Laboratory work shows WBC count 14.4, hemoglobin 10.6, platelet count 284, sodium 133, potassium 3.4, creatinine 0.61, lactic acid 1.1, T bili 1.0, AST 39, ALT 24, alk phos 133, LDH 702, procalcitonin 0.133. CT of the abdomen and pelvis shows findings concerning for cholecystitis with enlargement of lymphadenopathy and peripancreatic head mass disease burden. Pneumobilia seen consistent with the patient's given history of biliary stent. Case discussed with Dr. Lewis of General surgery, who stated that with history of stent, fever, and other history patient should most likely be transferred to higher level of care for possible ERCP. Images pushed to [facility] for review. Received a call back from the transfer center. They told me that the physician on ERCP called reviewed the patient's images. They state that the peripancreatic fluid is similar to previous and with the given history patient was not need an ERCP at this time. I do still feel that the patient would benefit from a higher level of care and requested to speak with Oncology. Case discussed with on-call Oncology through [facility]. They state that patient is on experimental therapy and since they are in clinical trial phase it would be best to try to avoid surgery if at all possible. Patient can most likely be sent to [facility], however oncology bed not available until tomorrow at earliest. patient amenable to transfer at this time. May 12, 2024 at 7:[address] Riggs: Sign out from Dr. Baglye. Patient needs to be transferred to [facility] for continuity of care for patients oncology needs and surgical needs. Oncology prefers no surgery at this time as patient is on clinical trial of chemotherapy. Antibiotics have been started. Sepsis protocol started. Will need call back from Oncology at [facility] with [facility]. Dr. Bagley - no events noted overnight. Accepted at [facility], pending bed assignment. 05/13/2024 Dr. Whitney: Patient signed out to myself while awaiting bed assignment. Patient's labs and workup were reviewed to slightly tachycardic afebrile this morning. Patient states she was feeling much improved from yesterday states she was still some pain but that the pain medicine has been helpful. She was well- appearing with no complaints. Contacted the hospital several times thru the day regarding bed status. None available currently. Dr Loomis: Received turned over. Review patient's history and physical. Review patient's workup up to this point. Had a discussion with the patient regarding her stay here in the emergency department. She has been here for approximately 48 hours. States she was feeling ?much better? she was not vomiting. No fevers. She was questioning the reason for the transfer to [facility]. I discussed with her the findings of the workup here in the ER. Discussed with her the concern that she was having an active infection of her gallbladder. I did discuss with her that a transfer to the [facility] was based upon the recommendations of the oncology staff that was consulted initially when she was here in the ER. She stated that she did not feel like she needed transferred. Stated that the only reason that she initially came to the emergency department was the thought that she was having a reaction to an infusion that she would received. There was no indication of any active reaction going on currently. She stated that she has an appointment already scheduled with her oncologist for tomorrow. She stated that she would like to be discharged. Patient signed against medical advice paperwork. Patient was alert and oriented x3. GCS 15 in my opinion has capacity to make decisions. <Mike Loomis, DO - Last Filed: 05/13/24 21:54> Lab Data Labs: Lab Results 05/11/24 05/11/24 05/12/24 Range/Units 18:05 18:20 06:50 WBC 14.4 H 9.6 (4.5-11.0) X10^3/uL RBC 4.02 3.54 L (4.0-5.2) X10^6/uL Hgb 10.6 L 9.5 L (12.0-16.0) g/dL Hct 32.3 L 28.3 L (36-46) % MCV 80.4 79.9 L (80-100) fL MCH 26.4 26.8 (26-34) PG MCHC 32.8 33.6 (30-36) % RDW 15.5 H 15.5 H (11.6-14.8) % Plt Count 284 222 (150-400) X10^3/uL Neut % (Auto) Not Reportable 78.6 H Lymph % (Auto) Not Reportable 9.4 L [place] % (Auto) Not Reportable 10.9 Eos % (Auto) Not Reportable 0.9 L Baso % (Auto) Not Reportable 0.2 Neut # (Auto) 7500 H (4020-2702) /uL Lymph # (Auto) Not Reportable 900 L [place] # (Auto) Not Reportable 1000 H Eos # (Auto) 100 (0-450) /uL Baso # (Auto) Not Reportable 0 Total Counted 100 Seg Neutrophils % 86.0 H (38-70) % Band Neutrophils % 5.0 (3-7) % Lymphocytes % (Manual) 6.0 L (25-45) % Monocytes % (Manual) 2.0 (2-11) % Basophils % (Manual) 1.0 (0-1) % Neutrophils # (Manual) 79801 H (0336-5434) /uL RBC Morphology See below Anisocytosis 1+ H PT 15.8 H (9.4-12.5) SECONDS INR 1.4 H (0.9-1.3) APTT 35 (25.1-36.5) SECONDS Sodium 133 L 134 L (137-145) mmol/L Potassium 3.4 3.4 (3.4-5.1) mmol/L Chloride 98 102 (98-107) mmol/L Carbon Dioxide 30 31 (22-32) mmol/L BUN 10 7 (7-17) mg/dL Creatinine 0.61 0.56 (0.52-1.04) mg/dL Estimated GFR > 60 > 60 (>60) mL/min BUN/Creatinine Ratio 16.4 12.5 (6-22) Glucose 101 H 88 (70-100) mg/dL Lactate 1.1 (0.7-2.1) mmol/L Calcium 8.8 8.3 L (8.4-10.2) mg/dL Total Bilirubin 1.0 0.8 (0.2-1.3) mg/dL AST 39 H 35 (14-36) IU/L ALT 24 21 (<35) IU/L Alkaline Phosphatase 133 H 120 (38-126) U/L Lactate Dehydrogenase 702 H (120-246) U/L Total Protein 6.2 L 5.7 L (6.3-8.2) g/dL Albumin 3.5 3.0 L (3.5-5.0) g/dL Globulin 2.7 2.7 (1.7-4.1) g/dL Albumin/Globulin Ratio 1.3 1.1 (1.0-2.8) Lipase 45 (23-300) U/L Procalcitonin 0.133 (<0.5) ng/mL Urine RBC None seen (0-5/HPF) Urine WBC 1-5/hpf (0-5/HPF) Ur Squamous Epith Cells 1-5 /hpf (0-5/HPF) Ur Transition Epith Cell 0-1/hpf (0-5/HPF) Urine Bacteria Many (>30) H (None) Ur Culture Indicated? Specimen cultured Vol Urine Centrifuged 10ml (spun) Urine Dip Bedside Urine Glucose Negative Bedside Urine Bilirubin - Negative Bedside Urine Ketone - Negative Urine Specific [place] 1.010 Bedside Urine Occult Blood - Negative Bedside Urine pH 7.0 Bedside Urine Protein +/- 15 Bedside Urine Urobilinogen +/- 1mg Bedside Urine Nitrite - Negative Bedside Urine Leukocytes ++ 125 Esterase MDM Narrative Medical decision making narrative: Fever, nausea, vomiting in patient recently starting chemotherapy. Patient found to have low-grade temperature 100.2? on arrival with tachycardia. Given patient's history sepsis alert initiated with broad-spectrum antibiotics initiated. Pain medications, fluids, antiemetics ordered. Laboratory work shows WBC count 14.4, hemoglobin 10.6, platelet count 284, sodium 133, potassium 3.4, creatinine 0.61, lactic acid 1.1, T bili 1.0, AST 39, ALT 24, alk phos 133, LDH 702, procalcitonin 0.133. CT of the abdomen and pelvis shows findings concerning for cholecystitis with enlargement of lymphadenopathy and peripancreatic head mass disease burden. Pneumobilia seen consistent with the patient's given history of biliary stent. Case discussed with Dr. Lewis of General surgery, who stated that with history of stent, fever, and other history patient should most likely be transferred to higher level of care for possible ERCP. Images pushed to [facility] for review. Received a call back from the transfer center. They told me that the physician on ERCP called reviewed the patient's images. They state that the peripancreatic fluid is similar to previous and with the given history patient was not need an ERCP at this time. I do still feel that the patient would benefit from a higher level of care and requested to speak with Oncology. Case discussed with on-call Oncology through [facility]. They state that patient is on experimental therapy and since they are in clinical trial phase it would be best to try to avoid surgery if at all possible. Patient can most likely be sent to [facility], however oncology bed not available until tomorrow at earliest. patient amenable to transfer at this time. May 12, 2024 at 7:[address] Riggs: Sign out from Dr. Bagley. Patient needs to be transferred to [facility] for continuity of care for patients oncology needs and surgical needs. Oncology prefers no surgery at this time as patient is on clinical trial of chemotherapy. Antibiotics have been started. Sepsis protocol started. Will need call back from Oncology at [facility] with [facility]. Dr. Bagley - no events noted overnight. Accepted at [facility], pending bed assignment. 05/13/2024 Dr. Whitney: Patient signed out to myself while awaiting bed assignment. Patient's labs and workup were reviewed to slightly tachycardic afebrile this morning. Patient states she was feeling much improved from yesterday states she was still some pain but that the pain medicine has been helpful. She was well- appearing with no complaints. Dr Loomis: Received turned over. Review patient's history and physical. Review patient's workup up to this point. Had a discussion with the patient regarding her stay here in the emergency department. She has been here for approximately 48 hours. States she was feeling ?much better? she was not vomiting. No fevers. She was questioning the reason for the transfer to [facility]. I discussed with her the findings of the workup here in the ER. Discussed with her the concern that she was having an active infection of her gallbladder. I did discuss with her that a transfer to the [facility] was based upon the recommendations of the oncology staff that was consulted initially when she was here in the ER. She stated that she did not feel like she needed transferred. Stated that the only reason that she initially came to the emergency department was the thought that she was having a reaction to an infusion that she would received. There was no indication of any active reaction going on currently. She stated that she has an appointment already scheduled with her oncologist for tomorrow. She stated that she would like to be discharged. Patient signed against medical advice paperwork. Patient was alert and oriented x3. GCS 15 in my opinion has capacity to make decisions. Discharge Plan Departure Patient Disposition: Left Against Medical Advice Clinical Impression: Acute cholecystitis Activity Restrictions/Additional Instructions: As per discussion of the current recommendations from the oncology team that was consulted was that you should be transferred to the [facility] for more definitive care. You have opted not to continue to pursue this option and would like to be discharged from the emergency department. I do recommend that you keep your appointment that you have scheduled for tomorrow morning at your oncologist office. Please return to the emergency department for new or worsening symptoms. Prescriptions: No Action atorvastatin 40 mg Tablet 40 mg PO DAILY lisinopril-hydrochlorothiazide 20-12.5 mg Tablet 1 tab PO DAILY tamsulosin 0.4 mg Capsule 0.4 mg PO DAILY bupropion HCl 300 mg Tablet Extended Release 24 Hr 300 mg PO QAM metoprolol tartrate 25 mg Tablet 25 mg PO BID gabapentin 300 mg See Rx Instructions .ROUTE .COMPLEX Rx Instructions: 1 cap twice a day and 2 caps at bedtime warfarin 2 mg See Rx Instructions .ROUTE .COMPLEX Rx Instructions: Take 3-4 tablets every evening or as directed based on INR fluticasone propion-salmeterol 250-50 mcg/dose Blister With Device 1 inh INHALATION BID baclofen 10 mg Tablet 10 mg PO BID montelukast 10 mg Tablet 10 mg PO DAILY albuterol 90 mcg/actuation Aerosol 90 mcg INHALATION Q4HR PRN (Reason: Shortness Of Breath Or Wheezing) Referrals: Miscellaneous,Doctor, MD [Primary Care Provider] - Stand Alone Forms: Patient Portal/API, Against Medical Advice
--- NOTE | 2024-05-11 18:24 | DI.CT.S_ITS ---
PROCEDURE: CT ABDOMEN PELVIS W CON INDICATIONS: GEN ABD PAIN, VOMITING, HX NON-HODGKINS LYMPHOMA TECHNIQUE: After the administration of intravenous contrast, axial sections acquired from the lung bases to the pubic symphysis. Coronal and sagittal reformats were performed. For radiation dose reduction, the following was used: automated exposure control, adjustment of mA and/or kV according to patient size. COMPARISON: [facility], CT, CT ABDOMEN PELVIS W CON, 03/24/2024, 22:09. FINDINGS: Image quality: Diagnostic. Lower Chest: No significant findings. ABDOMEN: Liver: No solid mass. Gallbladder: There is significant gallbladder wall thickening and small to moderate amount of pericholecystic fluid. No calcified gallstone is seen. Biliary ducts: Pneumobilia is again seen predominantly involving left hepatic lobe not significantly changed from prior study. Common bile duct stent is again seen and is grossly patent. Pancreas: Patient's known 7.8 x 6.5 cm lobulated mass arising from pancreatic head extending into nikolas habitus and pericaval region is again seen currently measures up to 8.8 x 6.5 cm in largest craniocaudal and transverse dimensions series 4, image 50 and series 5, image 75. The mass surrounds and attenuates the main portal vein, hepatic vein, hepatic artery and retro [place] inferior renal cava not significantly changed from prior study. Spleen: Enlarged without discrete splenic lesion. Adrenal Glands: No adrenal nodules. Kidneys and Ureters: No hydronephrosis. No solid mass. No complex renal cystic lesion which requires follow up. Stomach and Bowel: Fecal stasis in the colon is seen. No abnormal bowel wall thickening or mesenteric fat stranding. No abscess collection. Peritoneum: There is no peritoneal free air. Small to moderate amount of free fluid in lower abdomen and pelvis is seen. Ventral Wall: No significant ventral hernia. Abdominal Nodes: Extensive retroperitoneal adenopathy particularly involving aortocaval region further increased in size compared to previous study now measures up to 3.8 x 3.3 cm in size series 2, image 70. Vessels: Aorta and inferior vena cava are normal in size. Atherosclerotic calcifications are noted in abdominal aorta. PELVIS: Pelvic Organs: Unremarkable. Bladder: No bladder wall thickening, accounting for underdistention. Pelvic Nodes: No enlarged lymph nodes. Miscellaneous: No inguinal hernias are seen. Bones: No aggressive osseous abnormality. IMPRESSION: 1. Interval further increase in size of patient's known pancreatic head mass with significant mass effect on the adjacent vessels. 2. Interval worsening of retroperitoneal lymphadenopathy as described above. 3. Small to moderate amount of lower abdominal and pelvic free fluid. No gross free air. No bowel obstruction or abnormal bowel wall thickening. 4. Distended gallbladder with gallbladder wall thickening and pericholecystic fluid concerning for acute cholecystitis new since previous study. Dictated by: Xander Blanchard M.D. on 05/11/2024 at 20:08 Approved by: Xander Blanchard M.D. on 05/11/2024 at 20:19
--- NOTE | 2024-05-11 18:35 | EKG_ITS ---
[address] [address] Test Date: 2024-05-11 Pat Name: Brielle Reddy Department: [facility] Room: Gender: Female Analyst Business Analysis: LINH : 1965 Requested By: Order Number: [id number] Reading MD: Marvin Carballo MD Measurements Intervals [place] Rate: 112 P: 81 DC: 150 QRS: 70 QRSD: 72 T: 71 QT: 332 QTc: 453 Interpretive Statements Sinus tachycardia Electronically Signed On 05-12-2024 6:40:34 PST by Marvin Carballo MD
[2024-05-11] MEDS: MORPHINE 4 MG/ML INJ IV (18:39)
[2024-05-11] MEDS: CEFEPIME 2 GM in SODIUM CHLORIDE 0.9% 100 ML IV (18:39)
[2024-05-11] MEDS: SODIUM CHLORIDE 0.9% 1,000 ML 1000 ML IV ×2 (18:39→19:46)
[2024-05-11 18:40] LABS: Hematocrit 32.3 % (36-46); Hemoglobin 10.6 g/dL (12.0-16.0); Mean Corpuscular HGB Conc 32.8 % (30-36); Mean Corpuscular Hemoglobin 26.4 PG (26-34); Mean Corpuscular Volume 80.4 fL (80-100); Platelet Count 284 X10^3/uL (150-400); Red Blood Cell Count 4.02 X10^6/uL (4.0-5.2); Red Cell Distribution Width 15.5 % (11.6-14.8); White Blood Cell Count 14.4 X10^3/uL (4.5-11.0)
[2024-05-11 18:42] LABS: INR 1.4 (0.9-1.3); Prothrombin Time 15.8 SECONDS (9.4-12.5)
[2024-05-11 18:44] LABS: Bacteria Urine Many (>30); Culture Indicated Urine Specimen Cultured; RBC Urine None Seen (0-5/HPF); Squamous Epithelial Cell Urine 1-5 /HPF (0-5/HPF); Transitional Epi Cells Urine 0-1/HPF (0-5/HPF); Urine Volume 10mL (spun); WBC Urine 1-5/HPF (0-5/HPF)
[2024-05-11 18:45] LABS: PTT Partial Thromboplastin Tim 35 SECONDS (25.1-36.5)
[2024-05-11 18:46] LABS: Alanine Aminotransferase 24 IU/L (<35); Albumin 3.5 g/dL (3.5-5.0); Albumin Globulin Ratio 1.3 (1.0-2.8); Alkaline Phosphatase 133 U/L (38-126); Aspartate Aminotransferase 39 IU/L (14-36); BUN Creatinine Ratio 16.4 (6-22); Blood Urea Nitrogen 10 mg/dL (7-17); Calcium 8.8 mg/dL (8.4-10.2); Carbon Dioxide 30 mmol/L (22-32); Chloride 98 mmol/L (98-107); Estimated Glomerular Filt Rate > 60 mL/min (>60); Globulin 2.7 g/dL (1.7-4.1); Glucose 101 mg/dL (70-100); HEMOLYSIS < 15 (0-50); Lactate (Lactic Acid) 1.1 mmol/L (0.7-2.1); Lipase 45 U/L (23-300); Potassium 3.4 mmol/L (3.4-5.1); Sodium 133 mmol/L (137-145); Total Protein 6.2 g/dL (6.3-8.2)
[2024-05-11 18:50] LABS: Add Manual Diff / Slide Review YES
[2024-05-11 18:53] LABS: Anisocytosis 1+; Neutrophils Absolute Manual 13104 /uL (3000-5900); Total Cells Counted 100
[2024-05-11 19:03] LABS: Procalcitonin 0.133 ng/mL (<0.5)
[2024-05-11] MEDS: HYDROMORPHONE 0.5 MG INJ IV (19:46)
[2024-05-11] MEDS: HYDROMORPHONE 1 MG INJ IV (21:25)
--- NOTE | 2024-05-11 23:16 | DI.US.S_ITS ---
PROCEDURE: US ABDOMEN LIMITED INDICATIONS: ABD PAIN, GB DILATION TECHNIQUE: Real-time scanning was performed of the abdominal and retroperitoneal organs, with image documentation. COMPARISON: [facility], US, US ABDOMEN LIMITED, 02/21/2024, 12:04. [facility], CT, CT ABDOMEN PELVIS W CON, 05/11/2024, 19:04. FINDINGS: Liver: Liver is normal in size and homogeneous in echotexture. Gallbladder: Sludge filled gallbladder lumen is seen with gallbladder wall thickening measures up to 8.7 mm in thickness. No gross pericholecystic fluid. Positive sonographic Hurt sign is seen. Biliary ducts: Intrahepatic bile ducts are non-dilated. Extrahepatic bile duct caliber measures 4.5 mm. Normal is 6-7 mm or less in diameter, or 10 mm or less post-cholecystectomy. Pancreas: Patient's known large solid mass in pancreatic head region is again seen measures 9.6 x 8.1 x 10.2 cm in size. Miscellaneous: No free abdominal fluid. IMPRESSION: 1. Sludge material and possible small stones within gallbladder lumen. Gallbladder wall thickening and positive sonographic Hurt sign suggestive of acute cholecystitis. 2. No biliary ductal dilatation. 3. Again noted is large lobulated solid mass involving pancreatic head region measures 9.6 x 8.1 x 10.2 cm in size. Dictated by: Xander Blanchard M.D. on 05/12/2024 at 0:11 Approved by: Xander Blanchard M.D. on 05/12/2024 at 0:13
[2024-05-12] VITALS (54 sets, daily range): BP systolic 107–150; BP diastolic 53–84; PULSE 94–115; RESP 14–37; TEMP 36.6–36.9; O2SAT 92–97
[2024-05-12 00:51] LABS: Lactate Dehydrogenase 702 U/L (120-246)
[2024-05-12] MEDS: ONDANSETRON 4 MG/2 ML INJ IV (02:49)
[2024-05-12] MEDS: PIPERACILLIN/TAZO 4.5 GM in SODIUM CHLORIDE 0.9% 100 ML IV (02:54)
[2024-05-12] MEDS: HYDROMORPHONE 1 MG INJ IV ×5 (02:58→22:18)
--- NOTE | 2024-05-12 03:57 | PC.NURSE ---
Pt followed by [facility] Ball[facility]os. call center rn oncologist directed Ed Dr to speak with /[facility] oncology about transfer to their facility. followed up with transfer center about placement and was informed that Day shift oncologist would be following up about bed placement and accepting provider
[2024-05-12 07:03] LABS: Add Manual Diff / Slide Review NO; Basophils Absolute Auto 0 /uL (0-100); Basophils Percent Auto 0.2 % (0-2); Eosinophils Absolute Auto 100 /uL (0-450); Eosinophils Percent Auto 0.9 % (2-4); Hematocrit 28.3 % (36-46); Hemoglobin 9.5 g/dL (12.0-16.0); Lymphocytes Absolute Auto 900 /uL (1100-4500); Lymphocytes Percent Auto 9.4 % (25-40); Mean Corpuscular HGB Conc 33.6 % (30-36); Mean Corpuscular Hemoglobin 26.8 PG (26-34); Mean Corpuscular Volume 79.9 fL (80-100); Monocytes Absolute Auto 1000 /uL (0-900); Monocytes Percent Auto 10.9 % (3-14); Neutrophils Absolute Auto 7500 /uL (1500-7000); Neutrophils Percent Auto 78.6 % (50-75); Platelet Count 222 X10^3/uL (150-400); Red Blood Cell Count 3.54 X10^6/uL (4.0-5.2); Red Cell Distribution Width 15.5 % (11.6-14.8); White Blood Cell Count 9.6 X10^3/uL (4.5-11.0)
[2024-05-12 07:19] LABS: Alanine Aminotransferase 21 IU/L (<35); Albumin Globulin Ratio 1.1 (1.0-2.8); Alkaline Phosphatase 120 U/L (38-126); Aspartate Aminotransferase 35 IU/L (14-36); BUN Creatinine Ratio 12.5 (6-22); Bilirubin Total 0.8 mg/dL (0.2-1.3); Blood Urea Nitrogen 7 mg/dL (7-17); Calcium 8.3 mg/dL (8.4-10.2); Carbon Dioxide 31 mmol/L (22-32); Chloride 102 mmol/L (98-107); Estimated Glomerular Filt Rate > 60 mL/min (>60); Globulin 2.7 g/dL (1.7-4.1); Glucose 88 mg/dL (70-100); HEMOLYSIS < 15 (0-50); Potassium 3.4 mmol/L (3.4-5.1); Sodium 134 mmol/L (137-145); Total Protein 5.7 g/dL (6.3-8.2)
--- NOTE | 2024-05-12 08:12 | PC.NURSE ---
Patient states that they are on immunotherapy at [facility] with last one on Friday the . Patient denies being on chemotherapy.
[2024-05-12] MEDS: PIPERACILLIN/TAZO 3.375 GM in SODIUM CHLORIDE 0.9% 100 ML IV ×2 (10:37→18:06)
[2024-05-12] MEDS: ONDANSETRON 4 MG ODT SL (15:54)
--- NOTE | 2024-05-12 20:44 | PC.NURSE ---
Pt sitting in ED stretcher watching shows on computer. No distress noted at this time. No complaints or needs stated at this time. Pt remains connected to cardiac, resp, blood pressure, and pulse ox monitors with alarms on and audible. Call light within reach.
--- NOTE | 2024-05-12 21:50 | PC.NURSE ---
Ni change in patient condition or status. Pt resting quietly with eyes closed, resps even and not labored. No distress noted at this time. Pt rouses easily to verbal stimuli. No needs or complaints made at this time. Cell phone at nurses station with patient director of agronomy chair trimmer per patient request.
--- NOTE | 2024-05-12 22:06 | PC.NURSE ---
Pt ambulatory to restroom without difficulty or assistance
[2024-05-13] VITALS (36 sets, daily range): BP systolic 115–141; BP diastolic 57–72; PULSE 94–110; RESP 18–37; TEMP 36.9–37.1; O2SAT 93–97
--- NOTE | 2024-05-13 00:26 | PC.NURSE ---
Pt resting quietly with eyes closed, resps even and not labored. No distress noted at this time. Pt rouses easily to verbal stimuli. Currently no requests or complaints.
[2024-05-13] MEDS: PIPERACILLIN/TAZO 3.375 GM in SODIUM CHLORIDE 0.9% 100 ML IV ×3 (02:52→18:15)
[2024-05-13] MEDS: HYDROMORPHONE 1 MG INJ IV ×6 (03:00→22:33)
--- NOTE | 2024-05-13 06:23 | PC.NURSE ---
Patient ambulatory to restroom without difficulty or assistance.
--- NOTE | 2024-05-13 06:30 | PC.NURSE ---
CD REACTOR OPERATOR HEAD note: 0600 spoke to Delilah at /[facility] regarding placement. She said someone will be reviewing the board at 0800 and we should be getting a call sometime after that.
--- NOTE | 2024-05-13 07:19 | PC.NURSE ---
Patient is able to ambulate under her own power without assistive device. Patient requested to be able to shower. This RN prepared patient bathroom with shower supplies and oral care supplies. This RN first interaction with patient of the day. Patient remains afebrile. Patient port and access area covered with tegaderm.
[2024-05-13] MEDS: SODIUM CHLORIDE 0.9% 1,000 ML 150 ML IV ×3 (08:46→21:40)
--- NOTE | 2024-05-13 19:10 | PC.NURSE ---
pt aao x 3 sitting on bed working on computer, without c/o pain or discomfort at this time waiting for bed at [facility],, resp even and unlabored, IV infusing site clear
== END 2024-05-13 22:48 | disposition left against medical advice (07) ==
PROVIDERS: Emergency Medicine; Emergency Provider Emergency Medicine
DX: K81.0 Acute cholecystitis (principal); R10.9 Unspecified abdominal pain; C85.90 Non-Hodgkin lymphoma, unspecified, unspecified site; R11.2 Nausea with vomiting, unspecified; R00.0 Tachycardia, unspecified; R10.11 Right upper quadrant pain
CPT/HCPCS: 36415; 71045; 74177; 76705; 80053; 81003; 81015; 83605; 83615; 83690; 84145; 85007; 85025; 85610; 85730; 87040; 87086; 93005; 93010; 96361; 96365; 96366; 96367; 96375; 96376; 99284; 99285; J0692; J1171; J1642; J2270; J2405; J2543; Q9967

== ENCOUNTER 2024-06-28 06:26 | Emergency (ER) | payer OTHER, SELFPAY ==
[2024-06-28] VITALS (7 sets, daily range): BP systolic 111–143; BP diastolic 57–91; PULSE 90–125; RESP 14–33; TEMP 36.9; O2SAT 95–97; BMI 22.1
--- NOTE | 2024-06-28 07:13 | EKG_ITS ---
[address] [address] Test Date: 2024-06-28 Pat Name: Brielle Reddy Department: Room: Gender: Female Lever Miller: ANAT : 1965 Requested By: Order Number: [id number] Reading MD: Gavin Mendoza Measurements Intervals [place] Rate: 101 P: 84 IN: 160 QRS: 69 QRSD: 72 T: 74 QT: 364 QTc: 471 Interpretive Statements Sinus tachycardia Electronically Signed On 06-28-2024 17:10:18 PST by Gavin Mendoza
--- NOTE | 2024-06-28 07:45 | ED_ITS ---
HPI - General Adult General Chief complaint: Weakness Stated complaint: arms and legs feel tingly Time Seen by Provider: 06/28/24 07:22 Source: patient, family, RN notes reviewed and old records reviewed Mode of arrival: Ambulatory Limitations: no limitations History of Present Illness HPI narrative: 59-year-old female with non-Hodgkin's lymphoma on rituximab and tafasitamab followed by Dr. Kuhn at [facility] who presents with feeling shaky. Patient was seen here on 05/11/2024 found to have an infection for gallbladder because of where her tumor as she could not have removal of her gallbladder and had a drain placed. Patient states she felt much better after this. She been receiving her treatment was supposed to start an injection Friday but felt ill and was seen at [facility] earlier last week. She was supposed to start injections on Friday alongside her chemotherapy but this was delayed. Patient states no fevers or chills. She has been a little bit hoarse. No chest pain or shortness of breath. No nausea or vomiting that is new she states that is been at baseline and pretty well controlled. States abdominal pain has been improved since her drain was placed. States has been draining regularly without any other changes. Denies any diarrhea or constipation, no urinary symptoms. She was arrives feel sort of weak in her extremities like she just run along race. Patient states this is 1 of the questions they asked before she receives her treatments. She does note her right leg was having a little bit of swelling recently. Has not had any pain or discomfort that is new. Related Data Home Medications Medication Instructions Recorded Confirmed albuterol 90 mcg/actuation aerosol 90 mcg inhalation Q4HR PRN 05/13/24 05/13/24 inhaler Shortness Of Breath Or Wheezing atorvastatin 40 mg tablet 40 mg PO DAILY 05/13/24 05/13/24 baclofen 10 mg tablet 10 mg PO BID 05/13/24 05/13/24 bupropion HCl 300 mg 24 hr tablet, 300 mg PO QAM 05/13/24 05/13/24 extended release fluticasone 250 mcg-salmeterol 50 1 inh inhalation BID 05/13/24 05/13/24 mcg/dose blistr powdr for inhalation gabapentin See Rx Instructions .Route .COMPLEX 05/13/24 05/13/24 lisinopril 20 1 tab PO DAILY 05/13/24 05/13/24 mg-hydrochlorothiazide 12.5 mg tablet metoprolol tartrate 25 mg tablet 25 mg PO BID 05/13/24 05/13/24 montelukast 10 mg tablet 10 mg PO DAILY 05/13/24 05/13/24 tamsulosin 0.4 mg capsule 0.4 mg PO DAILY 05/13/24 05/13/24 warfarin See Rx Instructions .Route .COMPLEX 05/13/24 05/13/24 Allergies Allergy/AdvReac Type Severity Reaction Status Date / Time No Known Drug Allergies Allergy Verified 05/11/24 17:56 Review of Systems Review of Systems ROS Unobtainable: All systems reviewed & are unremarkable except as noted in HPI and below Patient History Social History Smoking Status: Current every day smoker Smoking Status: Current every day smoker tobacco type: cigarettes alcohol intake frequency: holidays/special occasions only Exam Narrative Exam Narrative: GENERAL: Alert and oriented x three, female in mild distress HEENT: Head normocephalic, atraumatic, EOMI, pupils reactive, face symmetric, moist mucous membranes NECK: Supple, full range of motion CARDIOVASCULAR: Regular rate and rhythm without murmurs, rubs or gallops. RESPIRATORY: Breath sounds equal bilaterally, no wheezes rales or rhonchi. Patient has a port right upper chest appears clean dry and intact without any signs of infection. ABDOMEN: Soft, nontender. Normoactive bowel sounds all 4 quadrants. No guarding or rebound, rigidity, no mass, patient has a drain from the right upper abdomen site also appears clean dry and intact to draining bilious fluid. : No CVA tenderness EXTREMITIES: Normal range of motion, no clubbing or edema. Neurovascularly intact NEUROLOGICAL: Cranial nerves II through XII grossly intact. Moving all extremities SKIN: Warm, dry, no petechiae, no rashes or lesions. Initial Vital Signs Initial Vital Signs: Vital Signs Temperature 98.4 F 06/28/24 06:55 Pulse Rate 125 H 06/28/24 06:55 Respiratory Rate 22 06/28/24 06:55 Blood Pressure 111/64 06/28/24 06:55 Pulse Oximetry 95 06/28/24 06:55 Oxygen Delivery Method Room Air 06/28/24 06:55 Course Orders Ordered: Discontinued Medications Heparin Sodium (Porcine) (Heparin 500 Unit/5 Ml Port Flush) 500 unit IV PRN PRN PRN Reason: Flush Last Admin: 06/28/24 10:06 Dose: 500 unit Documented By: MAL Sodium Chloride (Normal Saline 0.9%) 1,000 mls @ 1,000 mls/hr IV BOLUS ONE Stop: 06/28/24 08:54 Last Infusion: 06/28/24 09:44 Dose: Infused Documented By: Admin: 06/28/24 08:12 Dose: 1,000 mls/hr Documented By: MAL Ondansetron HCl (Ondansetron 4 Mg/2 Ml Inj) 4 mg IV NOW PRN PRN Reason: Nausea And Vomiting Ondansetron HCl (Ondansetron 4 Mg Odt) 4 mg PO NOW PRN PRN Reason: Nausea And Vomiting Oxycodone HCl (Oxycodone Ir 5 Mg Tablet) 5 mg PO NOW ONE Stop: 06/28/24 07:57 Last Admin: 06/28/24 08:11 Dose: 5 mg Documented By: MAL Vital Signs Vital signs: Vital Signs - 8 hr 06/28/24 06:55 Temperature 98.4 F Pulse Rate 125 H Respiratory Rate 22 Blood Pressure 111/64 Pulse Oximetry 95 Oxygen Delivery Method Room Air Medical Decision Making Lab Data 06/28/24 07:44 06/28/24 07:44 Labs: Lab Results 06/28/24 Range/Units 07:44 WBC 5.7 (4.5-11.0) X10^3/uL RBC 4.16 (4.0-5.2) X10^6/uL Hgb 10.4 L (12.0-16.0) g/dL Hct 31.9 L (36-46) % MCV 76.6 L (80-100) fL MCH 25.0 L (26-34) PG MCHC 32.7 (30-36) % RDW 18.3 H (11.6-14.8) % Plt Count 259 (150-400) X10^3/uL Neut % (Auto) 73.9 (50-75) % Lymph % (Auto) 12.8 L (25-40) % Gosper % (Auto) 11.8 (3-14) % Eos % (Auto) 1.0 L (2-4) % Baso % (Auto) 0.5 (0-2) % Neut # (Auto) 4200 (6387-0350) /uL Lymph # (Auto) 700 L (8485-8179) /uL Gosper # (Auto) 700 (0-900) /uL Eos # (Auto) 100 (0-450) /uL Baso # (Auto) 0 (0-100) /uL Sodium 135 L (137-145) mmol/L Potassium 3.5 (3.4-5.1) mmol/L Chloride 102 (98-107) mmol/L Carbon Dioxide 26 (22-32) mmol/L BUN 4 L (7-17) mg/dL Creatinine 0.54 (0.52-1.04) mg/dL Estimated GFR > 60 (>60) mL/min BUN/Creatinine Ratio 7.4 (6-22) Glucose 101 H (70-100) mg/dL Calcium 8.6 (8.4-10.2) mg/dL Magnesium 1.7 (1.6-2.3) mg/dL Total Bilirubin 1.2 (0.2-1.3) mg/dL AST 49 H (14-36) IU/L ALT 31 (<35) IU/L Alkaline Phosphatase 504 H (38-126) U/L Total Protein 5.6 L (6.3-8.2) g/dL Albumin 3.3 L (3.5-5.0) g/dL Globulin 2.3 (1.7-4.1) g/dL Albumin/Globulin Ratio 1.4 (1.0-2.8) Lipase 42 (23-300) U/L ECG Data Attestation: I personally reviewed and interpreted this ECG as follows: Interpretation: Sinus tachycardia rate of 101 MT 160 QRS is 72 QTC of 471, no acute ST changes. [facility] Narrative Medical decision making narrative: 59-year-old female non-Hodgkin's lymphoma with abdominal tumor recent cholecystitis had drain placed at [facility]. CBC shows normal white count hemoglobin is 10.4 which appears consistent with priors through earlier in May, microcytic, platelets are 259. Chemistries shows sodium 135 potassium 3.5 chloride 102 CO2 of 26 BUN 4 creatinine 0.54 glucose of 101 alk-phos is 5 of far, bilirubin is 1.2 with a AST of 49 ALT of [address] abdomen pelvis, interval worsening and there was development of ascites and increased mass effect and SMA suggesting slight increase in size of primary neoplasm. Interval placement of cholecystostomy tube gallbladder is decompressed relationship with a bout the pigtail is difficult to determine on CT gallbladder is decompressed and there definitely side holes within the gallbladder, cholecystostomy tube check maybe potentially helpful. Very large infiltrative pancreatic mass biliary tree is decompressed by metallic stent there was extensive associated adenopathy. Spoke with Dr. Cabral radiology regarding findings. DVT ultrasound is negative. Patient HR is 80s on telemetry at 0950, blood pressure is appropriate. Patient's workup shows some increase of ascites but no other significant changes her pigtail I believe is in the right position has been draining what looks like biliary your fluid regularly. Patient's labs reviewed patient felt appropriate for discharge but with short term follow up with her oncology team. Reviewed findings with the patient she was feeling improved at this time after a L fluids. Does note that she has been eating or drinking very well has lost about 8 lb since initiating treatment. Asked that she call to set up follow up with her oncology team. Patient is agreeable we will also print her labs and imaging so she has not available. Discharge Plan Departure Patient Disposition: Home Clinical Impression: Weakness Activity Restrictions/Additional Instructions: Your workup today shows little bit more ascites or fluid in your abdomen but your tube appears to be draining appropriately. Your labs show anemia but consistent with your priors earlier this month. Your DVT ultrasound does not show any blood clots A copy of your labs and imaging is included. Please follow up with your oncology team, I would let them know about your recent symptoms. Please return if you develop any fevers, new abdominal back or flank pain, persistent vomiting, black or bloody stools, if your drain is not draining properly, lightheadedness or passing out or other new or concerning changes. Prescriptions: No Action atorvastatin 40 mg Tablet 40 mg PO DAILY lisinopril-hydrochlorothiazide 20-12.5 mg Tablet 1 tab PO DAILY tamsulosin 0.4 mg Capsule 0.4 mg PO DAILY bupropion HCl 300 mg Tablet Extended Release 24 Hr 300 mg PO QAM metoprolol tartrate 25 mg Tablet 25 mg PO BID gabapentin 300 mg See Rx Instructions .ROUTE .COMPLEX Rx Instructions: 1 cap twice a day and 2 caps at bedtime warfarin 2 mg See Rx Instructions .ROUTE .COMPLEX Rx Instructions: Take 3-4 tablets every evening or as directed based on INR fluticasone propion-salmeterol 250-50 mcg/dose Blister With Device 1 inh INHALATION BID baclofen 10 mg Tablet 10 mg PO BID montelukast 10 mg Tablet 10 mg PO DAILY albuterol 90 mcg/actuation Aerosol 90 mcg INHALATION Q4HR PRN (Reason: Shortness Of Breath Or Wheezing) Referrals: Miscellaneous,Doctor, MD [Primary Care Provider] - Stand Alone Forms: Patient Portal/API/Survey
[2024-06-28 07:53] LABS: Add Manual Diff / Slide Review NO; Basophils Absolute Auto 0 /uL (0-100); Basophils Percent Auto 0.5 % (0-2); Eosinophils Absolute Auto 100 /uL (0-450); Hematocrit 31.9 % (36-46); Hemoglobin 10.4 g/dL (12.0-16.0); Lymphocytes Absolute Auto 700 /uL (1100-4500); Lymphocytes Percent Auto 12.8 % (25-40); Mean Corpuscular HGB Conc 32.7 % (30-36); Mean Corpuscular Volume 76.6 fL (80-100); Monocytes Absolute Auto 700 /uL (0-900); Monocytes Percent Auto 11.8 % (3-14); Neutrophils Absolute Auto 4200 /uL (1500-7000); Neutrophils Percent Auto 73.9 % (50-75); Platelet Count 259 X10^3/uL (150-400); Red Blood Cell Count 4.16 X10^6/uL (4.0-5.2); Red Cell Distribution Width 18.3 % (11.6-14.8); White Blood Cell Count 5.7 X10^3/uL (4.5-11.0)
--- NOTE | 2024-06-28 08:00 | DI.US.S_ITS ---
PROCEDURE: US PERIPH VENOUS LOW EXTREM BI INDICATIONS: lower extremity swelling, known cancer TECHNIQUE: Real-time imaging, as well as color and pulse Doppler interrogation, were performed of the deep veins of both legs from the inguinal ligament to the popliteal fossa, with documentation of the visualized calf veins. COMPARISON: None. FINDINGS: Right: The common femoral, femoral, popliteal, and the visualized calf veins are normally compressible, and free of intraluminal thrombus. Color and pulse Doppler demonstrate normal phasic intravascular flow. There is normal augmentation response to distal compression maneuver. Left: The common femoral, femoral, popliteal, and the visualized calf veins are normally compressible, and free of intraluminal thrombus. Color and pulse Doppler demonstrate normal phasic intravascular flow. There is normal augmentation response to distal compression maneuver. IMPRESSION: No findings of deep venous thrombosis in either lower extremity. Dictated by: Jacky Marshall M.D. on 06/28/2024 at 8:19 Approved by: Jacky Marshall M.D. on 06/28/2024 at 8:19
--- NOTE | 2024-06-28 08:01 | DI.CT.S_ITS ---
PROCEDURE: CT ABDOMEN PELVIS W CON INDICATIONS: weakness, recent biliary drain placed for cholecystitis/lymp TECHNIQUE: After the administration of intravenous contrast, axial sections acquired from the lung bases to the pubic symphysis. Coronal and sagittal reformats were performed. For radiation dose reduction, the following was used: automated exposure control, adjustment of mA and/or kV according to patient size. COMPARISON: [facility], CT, CT ABDOMEN PELVIS W CON, 05/11/2024, 19:04. FINDINGS: Image quality: Diagnostic. Lower Chest: No significant findings. ABDOMEN: Liver: There is extensive air in the biliary tree in this patient who has a extrahepatic biliary duct stent. This is expected. No identifiable liver masses. Gallbladder: Interval cholecystostomy tube placement. The gallbladder is decompressed. By CT, it is difficult to determine whether the pigtail remains within the gallbladder. The tube courses through the gallbladder and there sideholes in the gallbladder. Biliary ducts: Metal extrahepatic bile duct stent courses through a very large pancreatic mass. Ducts are decompressed. Extensive air in the biliary tree, expected. Pancreas: Very large infiltrative pancreatic mass, similar in size to previous. There is encasement and splaying of the left renal vein. Also noted is encasement and splaying of the common hepatic artery and slightly more mass effect on the SMA. There is extensive left gastric adenopathy, as before. Spleen: Size is within normal limits. Adrenal Glands: No adrenal nodules. Kidneys and Ureters: No hydronephrosis. No solid mass. No complex renal cystic lesion which requires follow up. Stomach and Bowel: Normal colonic caliber, without significant wall thickening. Peritoneum: Development of mild abdominal ascites and moderate pelvic ascites. Ventral Wall: No significant ventral hernia. Abdominal Nodes: Extensive left gastric adenopathy. Aortocaval adenopathy. Vessels: Aorta and inferior vena cava are normal in size. PELVIS: Pelvic Organs: Unremarkable. Bladder: No bladder wall thickening, accounting for underdistention. Pelvic Nodes: No enlarged lymph nodes. Miscellaneous: No inguinal hernias are seen. Bones: No aggressive osseous abnormality. 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 This is typically an incidental finding. IMPRESSION: 1. Interval worsening, in that there is been development of ascites and increased mass effect on the SMA suggesting slight increase in size of the primary neoplasm. 2. Interval placement of a cholecystostomy tube. The gallbladder is decompressed. The relationship of the loop of the pigtail to the gallbladder wall is difficult to determine on CT. The gallbladder is decompressed and there are definitely sideholes within the gallbladder. A cholecystostomy tube check may potentially be helpful. 3. Very large infiltrative pancreatic mass. The biliary tree is decompressed by a metallic stent. There is extensive associated adenopathy. Dictated by: Rishabh Cabral M.D. on 06/28/2024 at 8:47 Approved by: Rishabh Cabral M.D. on 06/28/2024 at 9:02
[2024-06-28 08:04] LABS: Alanine Aminotransferase 31 IU/L (<35); Albumin 3.3 g/dL (3.5-5.0); Albumin Globulin Ratio 1.4 (1.0-2.8); Alkaline Phosphatase 504 U/L (38-126); Aspartate Aminotransferase 49 IU/L (14-36); BUN Creatinine Ratio 7.4 (6-22); Bilirubin Total 1.2 mg/dL (0.2-1.3); Blood Urea Nitrogen 4 mg/dL (7-17); Calcium 8.6 mg/dL (8.4-10.2); Carbon Dioxide 26 mmol/L (22-32); Chloride 102 mmol/L (98-107); Estimated Glomerular Filt Rate > 60 mL/min (>60); Globulin 2.3 g/dL (1.7-4.1); Glucose 101 mg/dL (70-100); HEMOLYSIS < 15 (0-50); Lipase 42 U/L (23-300); Potassium 3.5 mmol/L (3.4-5.1); Sodium 135 mmol/L (137-145); Total Protein 5.6 g/dL (6.3-8.2)
[2024-06-28] MEDS: OXYCODONE IR 5 MG TABLET PO (08:11)
[2024-06-28 08:12] LABS: Magnesium 1.7 mg/dL (1.6-2.3)
[2024-06-28] MEDS: SODIUM CHLORIDE 0.9% 1,000 ML 1000 ML IV (08:12)
--- NOTE | 2024-06-28 08:32 | PC.NURSE ---
Addendum entered by Carmita Tilley R.N. 06/28/24 08:34: Dressing at drain insertion site clean, dry & intact. Original Note: Pt came to ED today because she has been having weakness in all 4 extremities since the placement of drain. Hx of gallbladder & pancreas tumor. Drain placed due to pain. Fluid in drain clear and greenish-yellow. Pt a&ox4. C/o 6/10 pain in RUQ. VS WNL.
== END 2024-06-28 10:17 | disposition home or self-care (01) ==
PROVIDERS: Emergency Provider Emergency Medicine
DX: R53.1 Weakness (principal); Z79.01 Long term (current) use of anticoagulants; Z92.21 Personal history of antineoplastic chemotherapy; F17.210 Nicotine dependence, cigarettes, uncomplicated; R00.0 Tachycardia, unspecified; C85.90 Non-Hodgkin lymphoma, unspecified, unspecified site
CPT/HCPCS: 36415; 74177; 80053; 83690; 83735; 85025; 93005; 93970; 96360; 96361; 99284; J1642; Q9967

== ENCOUNTER 2024-08-12 18:46 | Emergency (ER) | payer OTHER, SELFPAY ==
[2024-08-12] VITALS (7 sets, daily range): BP systolic 134–171; BP diastolic 71–80; PULSE 100–124; RESP 18; TEMP 36.7; O2SAT 96–99; BMI 19.6
--- NOTE | 2024-08-12 19:06 | DI.RAD.S_ITS ---
PROCEDURE: XR CHEST 1V INDICATIONS: suspected sepsis TECHNIQUE: One view of the chest was acquired. COMPARISON: [facility], CR, XR CHEST 1V, 05/11/2024, 18:03. FINDINGS: Surgical changes and devices: Right chest wall PICC with distal tip projecting over the lower SVC. Lungs and pleura: Lungs are clear. No pleural effusions or pneumothorax. Mediastinum: Mediastinal contours appear normal. Heart size is normal. Bones and chest wall: No suspicious bony lesions. Overlying soft tissues appear unremarkable. IMPRESSION: No acute cardiopulmonary abnormality is seen. Approved by: Georgette Ibrahim M.D.,Ph.D. on 08/12/2024 at 22:03
[2024-08-12 19:33] LABS: Basophils Absolute Auto 0 /uL (0-100); Basophils Percent Auto 0.4 % (0-2); Eosinophils Absolute Auto 300 /uL (0-450); Eosinophils Percent Auto 7.5 % (2-4); Lymphocytes Absolute Auto 300 /uL (1100-4500); Lymphocytes Percent Auto 6.8 % (25-40); Mean Corpuscular HGB Conc 33.4 % (30-36); Mean Corpuscular Hemoglobin 25.8 PG (26-34); Mean Corpuscular Volume 77.3 fL (80-100); Monocytes Absolute Auto 0 /uL (0-900); Monocytes Percent Auto 0.4 % (3-14); Neutrophils Absolute Auto 3600 /uL (1500-7000); Neutrophils Percent Auto 84.9 % (50-75); Platelet Count 74 X10^3/uL (150-400); Red Blood Cell Count 4.27 X10^6/uL (4.0-5.2); Red Cell Distribution Width 21.6 % (11.6-14.8); White Blood Cell Count 4.3 X10^3/uL (4.5-11.0)
[2024-08-12] MEDS: SODIUM CHLORIDE 0.9% 1,000 ML 1000 ML IV (19:35)
[2024-08-12 19:41] LABS: INR 1.1 (0.9-1.3); Prothrombin Time 12.2 SECONDS (9.4-12.5)
[2024-08-12 19:44] LABS: PTT Partial Thromboplastin Tim 28 SECONDS (25.1-36.5)
[2024-08-12 19:45] LABS: Alanine Aminotransferase 76 IU/L (<35); Albumin 3.8 g/dL (3.5-5.0); Albumin Globulin Ratio 1.8 (1.0-2.8); Alkaline Phosphatase 169 U/L (38-126); Aspartate Aminotransferase 54 IU/L (14-36); BUN Creatinine Ratio 28.9 (6-22); Bilirubin Total 1.8 mg/dL (0.2-1.3); Blood Urea Nitrogen 13 mg/dL (7-17); Calcium 9.1 mg/dL (8.4-10.2); Carbon Dioxide 29 mmol/L (22-32); Chloride 100 mmol/L (98-107); Estimated Glomerular Filt Rate > 60 mL/min (>60); Globulin 2.1 g/dL (1.7-4.1); Glucose 109 mg/dL (70-100); HEMOLYSIS < 15 (0-50); Lactate (Lactic Acid) 1.4 mmol/L (0.7-2.1); Lipase 25 U/L (23-300); Potassium 3.4 mmol/L (3.4-5.1); Sodium 134 mmol/L (137-145); Total Protein 5.9 g/dL (6.3-8.2)
[2024-08-12 19:49] LABS: Add Manual Diff / Slide Review SLIDE REVIEW; Anisocytosis 1+; Hypersegmented Neutrophils 1+; Ovalocytes 1+; Rouleaux 1+
[2024-08-12 19:50] LABS: Hypochromasia 1+; Microcytosis 1+; Toxic Vacuolation Present
[2024-08-12 20:03] LABS: Procalcitonin 0.107 ng/mL (<0.5)
[2024-08-12] MEDS: HYDROMORPHONE 1 MG INJ IV ×2 (21:32→23:42)
--- NOTE | 2024-08-12 22:53 | ED.ABDPAIN ---
HPI - Abdominal Pain General Chief Complaint: Abdominal Pain Stated Complaint: rectal bleed, cancer pt Time Seen by Provider: 08/12/24 22:52 Source: patient Mode of arrival: Ambulatory History of Present Illness HPI narrative: 59-year-old female with a past medical history of hypertension, non-Hodgkin's lymphoma, hyperlipidemia sinus tachycardia, comes into the ED from home for evaluation of lower abdominal cramping and diarrhea, she states it has been going on for 1 day. States that she received treatment at [facility], chemotherapy, every 21 days. Last treatment was proximally 1 week ago. She states that she did have potassium infusion performed yesterday at [facility], she also states that she has a history of tachycardia, typically 115-120. She denies any other symptoms such as headache visual disturbances chest pain shortness of breath nausea vomiting or any other GI/ symptoms at this time. Patient states that she does have a known cancer in her abdomen, does have a gallbladder drain states that she knows that she needs her gallbladder removed but they are not going to do this until they can shrink her tumor more. She states that she has only really here for pain management, does not want any additional imaging, states that she normally takes 30 mg of morphine states that she took it but did not help. She states that the diarrhea stopped states that it was only a small amount on the toilet paper, she is not concerned about this she really only came in for pain management Related Data Home Medications Medication Instructions Recorded Confirmed albuterol 90 mcg/actuation aerosol 90 mcg inhalation Q4HR PRN 05/13/24 05/13/24 inhaler Shortness Of Breath Or Wheezing atorvastatin 40 mg tablet 40 mg PO DAILY 05/13/24 05/13/24 baclofen 10 mg tablet 10 mg PO BID 05/13/24 05/13/24 bupropion HCl 300 mg 24 hr tablet, 300 mg PO QAM 05/13/24 05/13/24 extended release fluticasone 250 mcg-salmeterol 50 1 inh inhalation BID 05/13/24 05/13/24 mcg/dose blistr powdr for inhalation gabapentin See Rx Instructions .Route .COMPLEX 05/13/24 05/13/24 lisinopril 20 1 tab PO DAILY 05/13/24 05/13/24 mg-hydrochlorothiazide 12.5 mg tablet metoprolol tartrate 25 mg tablet 25 mg PO BID 05/13/24 05/13/24 montelukast 10 mg tablet 10 mg PO DAILY 05/13/24 05/13/24 tamsulosin 0.4 mg capsule 0.4 mg PO DAILY 05/13/24 05/13/24 warfarin See Rx Instructions .Route .COMPLEX 05/13/24 05/13/24 Previous Rx's Medication Instructions Recorded cephalexin 500 mg capsule 500 mg PO TID 7 days #21 caps 08/13/24 Allergies Allergy/AdvReac Type Severity Reaction Status Date / Time No Known Drug Allergies Allergy Verified 05/11/24 17:56 Review of Systems Review of Systems Narrative: General: Denies fever, chills, weight loss HEENT: Denies headache, eye drainage, eye irritation, head trauma, sore throat, voice change Cardiovascular: Denies any chest pain, palpitations, tachycardia Respiratory: Denies any shortness of breath, cough, wheeze, stridor GI/: Positive abdominal pain, bright red blood per rectum, diarrhea denies nausea, vomiting, melanotic stools, urinary frequency, urinary retention, dysuria, hematuria MSK: Denies any joint pain, muscle pains, swelling Skin: Denies any rashes, lesions, discoloration Neuro: Denies any headache, lightheadedness, dizziness, fainting, weakness Psych: Denies SI/HI Patient History tobacco type: cigarettes alcohol intake frequency: holidays/special occasions only Exam Narrative Exam Narrative: General: Cooperative, well-developed, not in acute distress HEENT: Normocephalic, atraumatic, PERRLA, normal sclera, eyelids normal Neck: Active full range of motion, atraumatic Chest: Normal to inspection, negative crepitus, no overlying erythema ecchymosis Respiratory: Normal respiratory effort, not in acute respiratory distress, clear to auscultation bilaterally negative cough, wheeze, tachypnea, rhonchi, rales Cardiology: Regular rate rhythm negative gallop, murmur, rubs GI/: Patient with perc drain to the anterior abdomen, soft, non rigid, normal to inspection, exam deferred MSK: Full active range of motion in all 4 extremities, atraumatic, no tenderness to palpation of any bony prominences Skin: No rashes or lesions noted Neuro: Alert awake oriented x3, moves all 4 extremities spontaneously, cranial nerves intact, able to answer all questions appropriately follows commands appropriately Psych: Cooperative, negative suicidal or homicidal ideations Initial Vital Signs Initial Vital Signs: Vital Signs Temperature 98.0 F 08/12/24 18:56 Pulse Rate 124 H 08/12/24 18:56 Respiratory Rate 18 08/12/24 18:56 Blood Pressure 164/71 H 08/12/24 18:56 Pulse Oximetry 99 08/12/24 18:56 Oxygen Delivery Method Room Air 08/12/24 18:56 Course Orders Ordered: ED Orders 08/12/24 19:06 XR chest 1V Stat EKG-12 Lead Stat RT Consult Eval and Treat NOW 08/12/24 19:16 Complete Blood Count AUTO DIFF Stat Comprehensive Metabolic Panel Stat Lactate (Lactic Acid) Stat Lipase Stat PTT Partial Thromboplastin Justo Stat Procalcitonin Stat Prothrombin Time INR Stat 08/12/24 19:30 Blood Culture Stat 08/13/24 00:10 Urine Culture Stat Urine Microscopic Stat Ondansetron HCl (Ondansetron 4 Mg/2 Ml Inj) 4 mg IV NOW PRN PRN Reason: Nausea And Vomiting Ondansetron HCl (Ondansetron 4 Mg Odt) 4 mg SL NOW PRN PRN Reason: Nausea And Vomiting Discontinued Medications Cephalexin HCl (Cephalexin 250 Mg Capsule) 500 mg PO NOW ONE Stop: 08/13/24 00:47 Hydromorphone HCl (Hydromorphone 1 Mg Inj) 1 mg IV NOW ONE Stop: 08/12/24 21:21 Last Admin: 08/12/24 21:32 Dose: 1 mg Documented By: ANGLE Hydromorphone HCl (Hydromorphone 1 Mg Inj) 1 mg IV NOW ONE Stop: 08/12/24 23:07 Last Admin: 08/12/24 23:42 Dose: 1 mg Documented By: ANGLE Hydromorphone HCl (Hydromorphone 1 Mg Inj) 1 mg IV NOW ONE Stop: 08/13/24 00:47 Sodium Chloride (Normal Saline 0.9%) 1,000 mls @ 1,000 mls/hr IV BOLUS ONE Stop: 08/12/24 20:05 Last Infusion: 08/12/24 21:36 Dose: Infused Documented By: Admin: 08/12/24 19:35 Dose: 1,000 mls/hr Documented By: ALIREZA Vital Signs Vital signs: Vital Signs - 8 hr 08/12/24 18:56 Temperature 98.0 F Pulse Rate 124 H Respiratory Rate 18 Blood Pressure 164/71 H Pulse Oximetry 99 Oxygen Delivery Method Room Air MDM - Abdominal Pain Differential Diagnosis Differential diagnosis: Likely abdominal pain, pancreatitis and other (Electrolyte abnormality, urinary tract infection) Lab Data 08/12/24 19:16 08/12/24 19:16 Labs: Lab Results 08/12/24 08/13/24 Range/Units 19:16 00:10 WBC 4.3 L (4.5-11.0) X10^3/uL RBC 4.27 (4.0-5.2) X10^6/uL Hgb 11.0 L (12.0-16.0) g/dL Hct 33.0 L (36-46) % MCV 77.3 L (80-100) fL MCH 25.8 L (26-34) PG MCHC 33.4 (30-36) % RDW 21.6 H (11.6-14.8) % Plt Count 74 L (150-400) X10^3/uL Neut % (Auto) 84.9 H (50-75) % Lymph % (Auto) 6.8 L (25-40) % [place] % (Auto) 0.4 L (3-14) % Eos % (Auto) 7.5 H (2-4) % Baso % (Auto) 0.4 (0-2) % Neut # (Auto) 3600 (3795-4027) /uL Lymph # (Auto) 300 L (9843-4546) /uL [place] # (Auto) 0 (0-900) /uL Eos # (Auto) 300 (0-450) /uL Baso # (Auto) 0 (0-100) /uL Hypersegmented Neuts 1+ Toxic Vacuolation Present H RBC Morphology See below Hypochromasia 1+ H Anisocytosis 1+ H Microcytosis 1+ H Ovalocytes 1+ H Rouleaux 1+ H PT 12.2 (9.4-12.5) SECONDS INR 1.1 (0.9-1.3) APTT 28 (25.1-36.5) SECONDS Sodium 134 L (137-145) mmol/L Potassium 3.4 (3.4-5.1) mmol/L Chloride 100 (98-107) mmol/L Carbon Dioxide 29 (22-32) mmol/L BUN 13 (7-17) mg/dL Creatinine 0.45 L (0.52-1.04) mg/dL Estimated GFR > 60 (>60) mL/min BUN/Creatinine Ratio 28.9 H (6-22) Glucose 109 H (70-100) mg/dL Lactate 1.4 (0.7-2.1) mmol/L Calcium 9.1 (8.4-10.2) mg/dL Total Bilirubin 1.8 H (0.2-1.3) mg/dL AST 54 H (14-36) IU/L ALT 76 H (<35) IU/L Alkaline Phosphatase 169 H (38-126) U/L Total Protein 5.9 L (6.3-8.2) g/dL Albumin 3.8 (3.5-5.0) g/dL Globulin 2.1 (1.7-4.1) g/dL Albumin/Globulin Ratio 1.8 (1.0-2.8) Lipase 25 (23-300) U/L Procalcitonin 0.107 (<0.5) ng/mL Urine RBC 0-1/hpf (0-5/HPF) Urine WBC 5-10/hpf H (0-5/HPF) Ur Squamous Epith Cells 1-5 /hpf (0-5/HPF) Urine Bacteria Moderate (10-30) H (None) Hyaline Casts 0-1/lpf (None) Vol Urine Centrifuged 10ml (spun) Point of care testing: Urine Dip Bedside Urine Glucose Negative Bedside Urine Bilirubin - Negative Bedside Urine Ketone - Negative Urine Specific [place] 1.015 Bedside Urine Occult Blood - Negative Bedside Urine pH 6.0 Bedside Urine Protein - Negative Bedside Urine Urobilinogen - Negative Bedside Urine Nitrite - Negative Bedside Urine Leukocytes +/- 15 Esterase Imaging Data Chest x-ray: Radiologist's Impression: [address] [address] XRay Report Signed Patient: Brielle Reddy MR#: [id number] : 1965 Acct:[id number] Age/Sex: 59 / F Date of Service: 08/12/24 Loc: ED Accession Number: [id number] Procedure: XR chest 1V Ordering Provider: Rikki Felton D.O. PROCEDURE: XR CHEST 1V INDICATIONS: suspected sepsis TECHNIQUE: One view of the chest was acquired. COMPARISON: [facility], CR, XR CHEST 1V, 05/11/2024, 18:03. FINDINGS: Surgical changes and devices: Right chest wall PICC with distal tip projecting over the lower SVC. Lungs and pleura: Lungs are clear. No pleural effusions or pneumothorax. Mediastinum: Mediastinal contours appear normal. Heart size is normal. Bones and chest wall: No suspicious bony lesions. Overlying soft tissues appear unremarkable. IMPRESSION: No acute cardiopulmonary abnormality is seen. MDM Narrative Medical decision making narrative: 59-year-old female with known history of non-Hodgkin's lymphoma as well as liver tumor with PERC drainage comes into the ED from home for evaluation of abdominal pain diarrhea bright red blood per rectum. She states that she had several bouts of diarrhea earlier today did note some small amounts of blood to her toilet paper but states that she is not concerned about this, she states that she had a flare-up of her abdominal pain that she normally has due to her history of cancer in her abdomen, she states that she is still scheduled to get her gallbladder removed but there is a tumor near it and they can not take it out until this is treated a little bit better. She does chemotherapy every 21 days last 1 was 1 week ago at [facility], she states that she is only here for pain management. Patient's lab work is at baseline, she states that she does not want any other imaging, states that she really just is here for pain management, chest x-ray was performed without any acute cardiopulmonary abnormality. She also states that she has baseline tachycardia typically runs 115-120. Patient had analgesia here, 3 g Dilaudid with significant improvement of symptoms, urinalysis consistent acute urinary tract infection patient was given 1st dose of antibiotics here sent home with a prescription form to follow up with specialist in outpatient setting she verbalized understanding of this was given strict return precautions verbalized understanding of this and agrees to being discharged home with outpatient follow up Discharge Plan Departure Patient Disposition: Home Clinical Impression: Abdominal pain, Urinary tract infection Instructions: DI for Urinary Tract Infection (UTI) Activity Restrictions/Additional Instructions: Please follow up with your primary care doctor and your specialist in outpatient setting Please read the discharge instructions sheet carefully and bring all papers to all doctor follow-up visits, as it may contain information that your doctor may want to see. Disease processes change and evolve, if your symptoms worsen or if you develop any new symptoms that are concerning to you please return for evaluation. Your evaluation today does not show any evidence of any life-threatening/serious illnesses requiring admission to the hospital or surgery. Please follow-up with your doctor for re-evaluation in approximately 1 day. Seek immediate medical attention for any worrisome symptoms. *If you do not have a primary care provider please contact the [facility] Resource line at [phone]. They will ask some questions about your medical history and help get you set up with a doctor in the community. Prescriptions: New cephalexin 500 mg capsule 500 mg PO TID 7 Days Qty: 21 0RF No Action atorvastatin 40 mg Tablet 40 mg PO DAILY lisinopril-hydrochlorothiazide 20-12.5 mg Tablet 1 tab PO DAILY tamsulosin 0.4 mg Capsule 0.4 mg PO DAILY bupropion HCl 300 mg Tablet Extended Release 24 Hr 300 mg PO QAM metoprolol tartrate 25 mg Tablet 25 mg PO BID gabapentin 300 mg See Rx Instructions .ROUTE .COMPLEX Rx Instructions: 1 cap twice a day and 2 caps at bedtime warfarin 2 mg See Rx Instructions .ROUTE .COMPLEX Rx Instructions: Take 3-4 tablets every evening or as directed based on INR fluticasone propion-salmeterol 250-50 mcg/dose Blister With Device 1 inh INHALATION BID baclofen 10 mg Tablet 10 mg PO BID montelukast 10 mg Tablet 10 mg PO DAILY albuterol 90 mcg/actuation Aerosol 90 mcg INHALATION Q4HR PRN (Reason: Shortness Of Breath Or Wheezing) Referrals: Miscellaneous,Doctor, MD [Primary Care Provider] - Stand Alone Forms: Patient Portal/API/Survey
[2024-08-13 00:03] VITALS: PULSE 108
[2024-08-13 00:04] VITALS: BP 141/73; PULSE 102; RESP 16
[2024-08-13 00:30] VITALS: BP 166/80; PULSE 97; RESP 15
[2024-08-13 00:39] LABS: Bacteria Urine Moderate (10-30); RBC Urine 0-1/HPF (0-5/HPF); Urine Volume 10mL (spun); WBC Urine 5-10/HPF (0-5/HPF)
[2024-08-13 00:40] LABS: Hyaline Casts Urine 0-1/LPF; Squamous Epithelial Cell Urine 1-5 /HPF (0-5/HPF)
[2024-08-13] MEDS: cephALEXin 250 MG CAPSULE 500 MG PO (00:58)
[2024-08-13 01:00] VITALS: BP 158/64; PULSE 109; RESP 32
[2024-08-13] MEDS: HYDROMORPHONE 1 MG INJ IV (01:25)
== END 2024-08-13 01:33 | disposition home or self-care (01) ==
PROVIDERS: Emergency Provider Student in an Organized Health Care Education/Training Program
DX: N39.0 Urinary tract infection, site not specified (principal); R10.30 Lower abdominal pain, unspecified; R19.7 Diarrhea, unspecified
CPT/HCPCS: 36415; 71045; 80053; 81003; 81015; 83605; 83690; 84145; 85025; 85610; 85730; 87040; 87086; 96361; 96374; 96376; 99284; J1171